=== PATIENT | female | born 1945 | race Caucasian/White ===

== ENCOUNTER 2022-06-17 08:43 | Inpatient (IN) | payer MEDICARE ==
--- NOTE | 2022-06-17 09:35 | ED ---
Abdominal Pain HPI - General Chief Complaint: Abdominal Pain Stated Complaint: Fluid on Abdomen Time Seen by Provider: 06/17/22 08:57 Source: patient, RN notes reviewed Mode of arrival: ambulatory Limitations: no limitations - History of Present Illness Initial Comments: 69-year-old female presents emergency Department chief complaint of abdominal pain, distention, ascites. Patient states she's had a large spleen for one year has been followed by her PCP who repeat ultrasound showing masses concerning for neoplasm metastatic cancer. Patient states she's been struggling with anemia for over one year. Patient states that she yesterday is to assess her fluid for ascites and was referred here. patient states she's had increase abdominal pain, distention. patient denies any fevers chills no dysuria she does complain of mild diarrhea but she has ibs. no melanotic stools. - Related Data Home Medications Medication Instructions Recorded Confirmed Loperamide HCl [Imodium A-D] 2 - 4 mg PO QID PRN 06/17/22 06/17/22 Naproxen Sodium [Aleve] 440 mg PO BID PRN 06/17/22 06/17/22 Allergies Allergy/AdvReac Type Severity Reaction Status Date / Time No Known Allergies Allergy Verified 06/17/22 11:01 Review of Systems ROS Statement: Those systems with pertinent positive or pertinent negative responses have been documented in the HPI. ROS Other: All systems not noted in ROS Statement are negative. Past Medical History Past Medical History: No Reported History History of Any Multi-Drug Resistant Organisms: None Reported Past Surgical History: Cholecystectomy Past Psychological History: No Psychological Hx Reported Smoking Status: Never smoker Past Alcohol Use History: None Reported Past Drug Use History: None Reported General Exam Limitations: no limitations General appearance: alert, in no apparent distress Head exam: Present: atraumatic, normocephalic, normal inspection Eye exam: Present: normal appearance, PERRL, EOMI. Absent: scleral icterus, conjunctival injection, periorbital swelling ENT exam: Present: normal exam, normal oropharynx, mucous membranes moist Neck exam: Present: normal inspection, full ROM. Absent: tenderness, me ningismus, lymphadenopathy Respiratory exam: Present: normal lung sounds bilaterally. Absent: respiratory distress, wheezes, rales, rhonchi, stridor Cardiovascular Exam: Present: regular rate, normal rhythm, normal heart sounds. Absent: systolic murmur, diastolic murmur, rubs, gallop, clicks GI/Abdominal exam: Present: soft, distended, tenderness, normal bowel sounds. Absent: guarding, rebound, rigid Course Vital Signs 06/17/22 06/17/22 08:50 12:16 Temperature 97.7 F Pulse Rate 90 90 Respiratory 18 18 Rate Blood Pressure 132/65 122/56 O2 Sat by Pulse 98 98 Oximetry Medical Decision Making - Medical Decision Making 77-year-old female presented for abdominal pain and ascites. Patient's found to have metastatic cancer this patient and patient has severe ascites. Patient be admitted to medicine consult to interventional radiology, oncology. - Lab Data Result diagrams: 06/17/22 10:28 06/17/22 10:28 Lab Results 06/17/22 06/17/22 06/17/22 Range/Units 10:28 10:28 10:28 WBC 3.7 L (3.8-10.6) k/uL RBC 3.05 L (3.80-5.40) m/uL Hgb 9.5 L (11.4-16.0) gm/dL Hct 30.4 L (34.0-46.0) % MCV 99.8 (80.0-100.0) fL MCH 31.0 (25.0-35.0) pg MCHC 31.1 (31.0-37.0) g/dL RDW 18.4 H (11.5-15.5) % Plt Count 70 L (150-450) k/uL MPV 11.0 Neutrophils % 74 % Lymphocytes % 18 % Monocytes % 4 % Eosinophils % 3 % Basophils % 0 % Neutrophils # 2.7 (1.3-7.7) k/uL Lymphocytes # 0.7 L (1.0-4.8) k/uL Monocytes # 0.1 (0-1.0) k/uL Eosinophils # 0.1 (0-0.7) k/uL Basophils # 0.0 (0-0.2) k/uL Manual Slide Review Performed Hypochromasia Marked Poikilocytosis Slight Anisocytosis Slight Macrocytosis Slight Ovalocytes Present PT (9.0-12.0) sec INR (<1.2) APTT (22.0-30.0) sec Sodium 137 (137-145) mmol/L Potassium 4.0 (3.5-5.1) mmol/L Chloride 105 (98-107) mmol/L Carbon Dioxide 23 (22-30) mmol/L Anion Gap 9 mmol/L BUN 20 H (7-17) mg/dL Creatinine 0.63 (0.52-1.04) mg/dL Est GFR (CKD-EPI)AfAm >90 (>60 ml/min/1.73 sqM) Est GFR (CKD-EPI)NonAf 86 (>60 ml/min/1.73 sqM) Glucose 93 (74-99) mg/dL Plasma Lactic Acid [place] 0.6 L (0.7-2.0) mmol/L Calcium 7.8 L (8.4-10.2) mg/dL Total Bilirubin 1.1 (0.2-1.3) mg/dL AST 17 (14-36) U/L ALT 8 (4-34) U/L Alkaline Phosphatase 66 (38-126) U/L Total Protein 5.4 L (6.3-8.2) g/dL Albumin 2.9 L (3.5-5.0) g/dL Amylase <30 L (30-110) U/L Lipase 18 L (23-300) U/L 06/17/22 Range/Units 10:28 WBC (3.8-10.6) k/uL RBC (3.80-5.40) m/uL Hgb (11.4-16.0) gm/dL Hct (34.0-46.0) % MCV (80.0-100.0) fL MCH (25.0-35.0) pg MCHC (31.0-37.0) g/dL RDW (11.5-15.5) % Plt Count (150-450) k/uL MPV Neutrophils % % Lymphocytes % % Monocytes % % Eosinophils % % Basophils % % Neutrophils # (1.3-7.7) k/uL Lymphocytes # (1.0-4.8) k/uL Monocytes # (0-1.0) k/uL Eosinophils # (0-0.7) k/uL Basophils # (0-0.2) k/uL Manual Slide Review Hypochromasia Poikilocytosis Anisocytosis Macrocytosis Ovalocytes PT 11.9 (9.0-12.0) sec INR 1.1 (<1.2) APTT 29.0 (22.0-30.0) sec Sodium (137-145) mmol/L Potassium (3.5-5.1) mmol/L Chloride (98-107) mmol/L Carbon Dioxide (22-30) mmol/L Anion Gap mmol/L BUN (7-17) mg/dL Creatinine (0.52-1.04) mg/dL Est GFR (CKD-EPI)AfAm (>60 ml/min/1.73 sqM) Est GFR (CKD-EPI)NonAf (>60 ml/min/1.73 sqM) Glucose (74-99) mg/dL Plasma Lactic Acid [place] (0.7-2.0) mmol/L Calcium (8.4-10.2) mg/dL Total Bilirubin (0.2-1.3) mg/dL AST (14-36) U/L ALT (4-34) U/L Alkaline Phosphatase (38-126) U/L Total Protein (6.3-8.2) g/dL Albumin (3.5-5.0) g/dL Amylase (30-110) U/L Lipase (23-300) U/L Disposition Clinical Impression: Metastatic cancer, Ascites Disposition: ADMITTED IP TO THIS HOSP Condition: Fair Referrals: Mary Cole MD [Primary Care Provider] - 1-2 days Time of Disposition: 12:45
[2022-06-17 10:37] LABS: Anisocytosis Slight; Basophils % (A) 0 %; Eosinophils # (A) 0.1 k/uL (0-0.7); Eosinophils % (A) 3 %; HCT 30.4 % (34.0-46.0); HGB 9.5 gm/dL (11.4-16.0); Hypochromasia Marked; Lymphocytes # (A) 0.7 k/uL (1.0-4.8); Lymphocytes % (A) 18 %; MCHC 31.1 g/dL (31.0-37.0); MCV 99.8 fL (80.0-100.0); Macrocytosis Slight; Monocytes # (A) 0.1 k/uL (0-1.0); Monocytes % (A) 4 %; Neutrophils # (A) 2.7 k/uL (1.3-7.7); Neutrophils % (A) 74 %; Poikilocytosis Slight; RBC 3.05 m/uL (3.80-5.40); RDW 18.4 % (11.5-15.5); WBC 3.7 k/uL (3.8-10.6)
[2022-06-17 10:45] LABS: INR 1.1 (<1.2); Prothrombin Time 11.9 sec (9.0-12.0)
[2022-06-17 10:48] LABS: ALT 8 U/L (4-34); AST 17 U/L (14-36); African American GFR (CKD) >90 (>60 ml/min/1.73 sqM); Albumin 2.9 g/dL (3.5-5.0); Alkaline Phosphatase 66 U/L (38-126); Amylase <30 U/L (30-110); Anion Gap 9 mmol/L; Blood Urea Nitrogen 20 mg/dL (7-17); Calcium 7.8 mg/dL (8.4-10.2); Carbon Dioxide 23 mmol/L (22-30); Chloride 105 mmol/L (98-107); Glucose 93 mg/dL (74-99); Lipase 18 U/L (23-300); Non-African American GFR(CKD) 86 (>60 ml/min/1.73 sqM); Sodium 137 mmol/L (137-145); Total Bilirubin 1.1 mg/dL (0.2-1.3); Total Protein 5.4 g/dL (6.3-8.2)
[2022-06-17 10:58] LABS: Platelet Count 70 k/uL (150-450)
[2022-06-17 10:59] LABS: Ovalocytes Present
--- NOTE | 2022-06-17 12:38 | CT ---
EXAMINATION TYPE: CT abdomen pelvis w con CT DLP: 913.5 mGycm, Automated exposure control for dose reduction was used. DATE OF EXAM: 06/17/2022 12:16 PM COMPARISON: None available. CLINICAL INDICATION:Female, 77 years old with history of abdominal pain/US showing masses TECHNIQUE: Standard CT of the abdomen and pelvis following the administration of 100 cc of Isovue 3 00 IV contrast material. Coronal and sagittal reformats were performed. FINDINGS: LOWER CHEST: Partial visualization of bilateral breast prosthesis. Small left pleural effusion with a ssociated atelectasis. Small pericardial effusion. ABDOMEN LIVER: Diffusely hypoattenuating parenchyma. No suspicious focal lesion. GALLBLADDER AND BILE DUCTS: The gallbladder is surgically absent. No biliary duct dilatation. PANCREAS: Unremarkable. SPLEEN: Enlarged measuring 19.6 cm increasing in cc dimension. Multiple hypodense lesions demonstrate d throughout the spleen with largest measuring up to 8.1 cm. ADRENAL GLANDS: Unremarkable. KIDNEYS AND URETERS: No evidence of hydronephrosis or renal calculus. The kidneys enhance symmetrical ly without focal lesion. PELVIS BLADDER: Incompletely distended but grossly unremarkable. REPRODUCTIVE: Abnormal midline posterior pelvis soft tissue involving the uterus and adnexa with cyst ic lesions (series 201, image 71). This grossly measures 8.3 x 7.3 cm with largest cyst on the left m easuring 5.3 centers largest cyst in the right measuring 4.3 cm. There is a hyperdense lesion within the anterior wall uterine fundus measuring up to 3.0 cm. It is difficult to determine origin of mass from the uterus versus ovaries. ABDOMEN & PELVIS STOMACH AND BOWEL: Small hiatal hernia, duodenum is unremarkable. No focal wall thickening. No eviden ce of bowel obstruction. PERITONEUM: No evidence of pneumoperitoneum. Moderate to large ascites. Omental soft tissue nodularit y demonstrated in the ventral omentum (series 201, image 47 and 44). VASCULATURE: Mild atherosclerotic calcifications are present throughout the abdominal aorta and its b ranches. No evidence of aortic aneurysm. Dilated patent splenic vein and main portal vein. MUSCULOSKELETAL: No acute osseous abnormalities. No aggressive osseous lesions. LYMPH NODES: No gross evidence for lymphadenopathy. SOFT TISSUE/ABDOMINAL WALL: Diffuse anasarca. IMPRESSION: 1. Abnormal soft tissue mass in the midline pelvis with cystic lesions involving the adnexa and uter us. Additionally there is an enlarged spleen with multiple lesions identified and peritoneal carcinom atosis. Findings concerning for primary ovarian/uterine malignancy with metastasis. Further evaluatio n with pelvic ultrasound is recommended if not were performed. Gynecological oncologist consult recom mended. 2. Small left pleural effusion, pericardial effusion, and moderate to large ascites likely related #1 .
[2022-06-17] MEDS ORDERED: HYDROcodone/APAP 5-325MG 1 EACH TAB PO PRN (13:17)
[2022-06-17] MEDS ORDERED: ONDANSETRON 4 MG/2 ML VIAL IVP PRN (13:17)
[2022-06-17] MEDS ORDERED: NALOXONE 0.4 MG/ML 1 ML VIAL IV PRN (13:17)
[2022-06-17] MEDS: SODIUM CHLORIDE 0.9% 1,000 ML IV SCH (13:50)
[2022-06-17 17:25] LABS: Appearance,Urine Clear (Clear); Bilirubin,Urine Negative (Negative); Blood,Urine Negative (Negative); Color,Urine Yellow; Glucose,Urine (UA) Negative (Negative); Ketones,Urine 2+ (Negative); Leukocyte Esterase,Urine Trace (Negative); Mucus,Urine Rare /hpf; Nitrite,Urine Negative (Negative); PH, Urine 5.5 (5.0-8.0); Protein,Urine Negative (Negative); RBC,Urine 1 /hpf (0-5); Squamous Epithelial Cell,Urine 1 /hpf (0-4); Urobilinogen,Urine <2.0 mg/dL (<2.0); WBC,Urine 1 /hpf (0-5)
[2022-06-17 17:27] LABS: Specific Gravity,Urine >1.050 (1.001-1.035)
[2022-06-18] MEDS: SODIUM CHLORIDE 0.9% 1,000 ML IV SCH (03:02)
--- NOTE | 2022-06-18 04:45 | HP ---
HISTORY AND PHYSICAL CHIEF COMPLAINT: Abdominal pain and distention. HISTORY OF PRESENT ILLNESS: This is a 77-year-old woman with a past medical history of no significant medical issues, complaining of progressive abdominal distention and pain. The patient apparently lost some weight also. The patient has a history of cholecystectomy. CT scan of the abdomen done in the ER showed multiple abnormalities including soft tissue mass in the midline pelvis with cystic lesions and also small left pleural effusion and splenomegaly and some ascites also. The patient admitted for evaluation. There is no history of any fever, rigors, or chills. PAST MEDICAL HISTORY: No history of any cardiovascular illness. PAST SURGICAL HISTORY: History of cholecystectomy. HOME MEDICATIONS: Reviewed include Aleve. ALLERGIES: None. FAMILY HISTORY: No history of heart disease or strokes in the family. SOCIAL HISTORY: No history of smoking or alcohol. REVIEW OF SYSTEMS: A 14-point review of systems is negative except as mentioned earlier. PHYSICAL EXAMINATION: VITAL SIGNS: Pulse is 88, blood pressure 120/62, respirations 16. HEENT: Conjunctivae normal. NECK: No JVD. CARDIOVASCULAR: S1, S2 muffled. RESPIRATIONS: Decreased breath sounds at the bases. Scattered rhonchi. ABDOMEN: Soft, obese, ascites, splenomegaly. LEGS: No edema. NERVOUS SYSTEM: No focal deficits. LABS: WBC 3.2. Other labs are noted. ASSESSMENT: 1. Abdominal distention with ascites, rule out cirrhosis of liver or metastatic malignancy. 2. 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 3. Mild pancytopenia. RECOMMENDATIONS AND DISCUSSION: This is a 77-year-old woman who presented with multiple complex medical issues. We will monitor the patient closely. We will arrange for Hematology/Oncology evaluation and abdominal paracentesis and symptomatic treatment. Prognosis guarded because of multiple complex medical issues. Further recommendations to follow. See orders for further details. MMODL / IJN: [id number] /
[2022-06-18 11:04] LABS: Anisocytosis Slight; Basophils % (A) 1 %; Eosinophils # (A) 0.1 k/uL (0-0.7); Eosinophils % (A) 5 %; HCT 28.2 % (34.0-46.0); HGB 8.6 gm/dL (11.4-16.0); Hypochromasia Marked; Lymphocytes # (A) 0.8 k/uL (1.0-4.8); Lymphocytes % (A) 28 %; MCHC 30.4 g/dL (31.0-37.0); MCV 101.9 fL (80.0-100.0); Macrocytosis Moderate; Mean Platelet Volume 10.5; Monocytes # (A) 0.1 k/uL (0-1.0); Monocytes % (A) 4 %; Neutrophils # (A) 1.7 k/uL (1.3-7.7); Neutrophils % (A) 61 %; RBC 2.77 m/uL (3.80-5.40); RDW 18.6 % (11.5-15.5); WBC 2.8 k/uL (3.8-10.6)
[2022-06-18 11:11] LABS: Platelet Count 60 k/uL (150-450)
[2022-06-18 12:03] VITALS: RESP 16
[2022-06-18 13:05] LABS: Uric Acid 5.3 mg/dL (3.7-7.4)
--- NOTE | 2022-06-18 13:43 | US ---
Ultrasound-guided paracentesis. DATE OF EXAM: 06/18/2022 CLINICAL HISTORY: Ascites The procedure was discussed with the patient. The risks, complications, benefits, and alternatives we re discussed and any questions were answered. Informed consent was obtained. The patient was placed s upine on the ultrasound table and prepped and draped in the usual sterile fashion. All elements of maximal barrier technique were utilized. Under ultrasound guidance, access into the right lower quadrant was obtained, via the paracentesis catheter system and direct ultrasound guidanc e. Approximately 4.2 liters of straw-colored fluid was removed. The patient was stable throughout the pr ocedure and remained stable upon discharge from Department of Radiology. IMPRESSION: Successful paracentesis under ultrasound guidance.
--- NOTE | 2022-06-18 16:40 | P.PN ---
Subjective Progress Note Date: 06/18/22 This is a pleasant 77 year old male admitted with concern for possible metastatic malignancy. Oncology has been consulted for work up. Patient is pending paracentesis with cytology today. She reports being unable to sit up as she has significant abdominal distention. Labs today showing white count 2.8, hgb 8.6, platelets are 60. Hemodynamically stable. She recently had echocardiogram done in May at [facility], reports requested. States she had routine pap last year at her PCP office which was negative. Further recommendations to come following oncology work up. Review of Systems Constitutional: Denied any fatigue denied any fever. Cardio vascular: denied any chest pain, palpitations Gastrointestinal: denied any nausea, vomiting, diarrhea, reports abdominal pain and distention Pulmonary: Denies cough, reports shortness of breath Neurologic denied any new focal deficits All inpatient medications were reviewed and appropriate changes in these medications as dictated in the interval history and assessment and plan. PHYSICAL EXAMINATION: GENERAL: The patient is alert and oriented x3, not in any acute distress. Well developed, well nourished. HEENT: Pupils are round and equally reacting to light. EOMI. No scleral icterus. No conjunctival pallor. Normocephalic, atraumatic. No pharyngeal erythema. No thyromegaly. CARDIOVASCULAR: S1 and S2 present. No murmurs, rubs, or gallops. PULMONARY: Chest is clear to auscultation, no wheezing or crackles. ABDOMEN: Soft, nontender, distended, normoactive bowel sounds. No palpable organomegaly. MUSCULOSKELETAL: No joint swelling or deformity. EXTREMITIES: No cyanosis, clubbing, or pedal edema. NEUROLOGICAL: Gross neurological examination did not reveal any focal deficits. SKIN: No rashes. Assessment and plan Assessment Abdominal distention with ascites ongoing work up Uterine/Ovarian mass Mild pancytopenia Small left pleural effusion, pericardial effusion most likely from abdominal ascites Post Cholecystectomy Splenomegaly Bilateral breast prosthesis GI Prophylaxis DVT Prophylaxis No Code Plan Pending paracentesis Oncology work up Repeat CBC in AM Echo report reqeuested from [place] Follow up AM chest xray The impression and plan of care has been dictated by Polly Rdz Nurse Practitioner as directed. Dr. Michelle MD I have performed a history and physical examination and medical decision making of this patient, discussed the same with the dictator, and agree with the dictators assessment and plan as written, documented as a scribe. Based on total visit time, I have performed more than 50% of this visit. Objective - Vital Signs Vital signs: Vital Signs Temp 97.7 F 06/18/22 04:58 Pulse 81 06/18/22 12:50 Resp 16 06/18/22 12:50 BP 119/63 06/18/22 12:50 Pulse Ox 96 06/18/22 12:50 FiO2 Intake & Output 06/17/22 06/18/22 06/18/22 18:59 06:59 18:59 Intake Total 880 1020 Balance 880 1020 Weight 68.18 kg Intake: Intake, IV Titration 300 900 Amount Sodium Chloride 0.9% 1, 300 900 000 ml @ 75 mls/hr IV . [id number] MEDARDO Rx#:[id number] Oral 580 120 Other: # Voids 1 1 - Labs CBC & Chem 7: 06/18/22 10:26 06/17/22 10:28 Labs: Abnormal Lab Results - Last 24 Hours (Table) 06/17/22 06/18/22 Range/Units 09:27 10:26 WBC 2.8 L (3.8-10.6) k/uL RBC 2.77 L (3.80-5.40) m/uL Hgb 8.6 L (11.4-16.0) gm/dL Hct 28.2 L (34.0-46.0) % MCV 101.9 H (80.0-100.0) fL MCHC 30.4 L (31.0-37.0) g/dL RDW 18.6 H (11.5-15.5) % Plt Count 60 L (150-450) k/uL Lymphocytes # 0.8 L (1.0-4.8) k/uL Ur Specific [place] >1.050 H (1.001-1.035) Urine Ketones 2+ H (Negative) Ur Leukocyte Esterase Trace H (Negative) Urine Mucus Rare H (None) /hpf Assessment and Plan Time with Patient: Less than 30
--- NOTE | 2022-06-18 18:39 | P.CONS ---
History of Present Illness - Reason for Consult Consult date: 06/18/22 malignancy concern Requesting physician: Rene Cortez - History of Present Illness Mrs Carr is a 69-year-old female presents emergency Department chief complaint of abdominal pain, distention, ascites. We recently received a stat referral from her PCP for pancytopenia on 06/16/22, but she has not been seen in office yet. Apparently anemia and identified large spleen was mentioned a year has been followed by her PCP who repeat ultrasound showing masses concerning for neoplasm metastatic cancer. She did see Dr. Cortez in [place], oncology but at that time refused bone marrow biopsy Patient states that she yesterday is to assess her fluid for ascites and was referred here. patient states she's had increase abdominal pain, distention. CBC shows pancytopenia with macrocytosis. CT abdomen and pelvis reveal cystic pelvic mass - adnexa associated and ascites. Paracentesis for diagnostic and therapeutic implications was already ordered. Review of Systems All systems: negative Constitutional: Reports as per HPI Past Medical History Past Medical History: No Reported History History of Any Multi-Drug Resistant Organisms: None Reported Past Surgical History: Cholecystectomy Additional Past Surgical History / Comment(s): bunionecty to left foot Past Anesthesia/Blood Transfusion Reactions: No Reported Reaction Smoking Status: Never smoker Medications and Allergies Home Medications Medication Instructions Recorded Confirmed Type Loperamide HCl [Imodium A-D] 2 - 4 mg PO QID PRN 06/17/22 06/17/22 History Naproxen Sodium [Aleve] 440 mg PO BID PRN 06/17/22 06/17/22 History Allergies Allergy/AdvReac Type Severity Reaction Status Date / Time No Known Allergies Allergy Verified 06/17/22 11:01 Physical Exam Vitals: Vital Signs Temp Pulse Pulse Resp BP BP Pulse Ox 06/18/22 12:00 82 16 131/73 97 06/18/22 08:25 77 13 06/18/22 04:58 97.7 F 77 13 110/66 93 L 06/17/22 19:10 98.2 F 87 18 107/59 97 06/17/22 15:36 20 06/17/22 14:00 97.6 F 88 16 120/66 96 06/17/22 13:57 87 18 124/61 96 Intake and Output 06/17/22 06/18/22 06/18/22 22:59 06:59 14:59 Intake Total 880 1020 Balance 880 1020 Intake: Intake, IV Titration 300 900 Amount Sodium Chloride 0.9% 1, 300 900 000 ml @ 75 mls/hr IV . [id number] MEDARDO Rx#:[id number] Oral 580 120 Other: # Voids 1 1 - Constitutional General appearance: cooperative - EENT Eyes: EOMI ENT: NA/AT - Neck Neck: normal ROM - Respiratory Respiratory: bilateral: diminished - Cardiovascular Rhythm: regularly irregular - Gastrointestinal General gastrointestinal: distended - Integumentary Integumentary: pale - Musculoskeletal Musculoskeletal: generalized weakness - Psychiatric Psychiatric: A&O x's 3, appropriate affect Results CBC & Chem 7: 06/18/22 10:26 06/17/22 10:28 Labs: Abnormal Lab Results - Last 24 Hours (Table) 06/17/22 06/18/22 Range/Units 09:27 10:26 WBC 2.8 L (3.8-10.6) k/uL RBC 2.77 L (3.80-5.40) m/uL Hgb 8.6 L (11.4-16.0) gm/dL Hct 28.2 L (34.0-46.0) % MCV 101.9 H (80.0-100.0) fL MCHC 30.4 L (31.0-37.0) g/dL RDW 18.6 H (11.5-15.5) % Plt Count 60 L (150-450) k/uL Lymphocytes # 0.8 L (1.0-4.8) k/uL Ur Specific [place] >1.050 H (1.001-1.035) Urine Ketones 2+ H (Negative) Ur Leukocyte Esterase Trace H (Negative) Urine Mucus Rare H (None) /hpf CT scan - abdomen: report reviewed CT scan - pelvis: report reviewed Assessment and Plan (1) Macrocytic anemia Narrative/Plan: Work-up ordered Current Visit: Yes Status: Acute Code(s): D53.9 - NUTRITIONAL ANEMIA, UN SPECIFIED SNOMED Code(s): 74504127 (2) Pancytopenia Narrative/Plan: Pancytopenia work-up ordered Transfuse hg<7, platelets <10 Hold NSAIDS, ASA, AC platlets <50K Current Visit: Yes Status: Acute Code(s): D61.818 - OTHER PANCYTOPENIA SN OMED Code(s): 462008906 (3) Pelvic mass Narrative/Plan: Await therapeutic and diagnostic paracentesis for cytology and definitive diagnosis There are 3-4 mentioned cystic structured posterior pelvic masses largest 8x7cm Current Visit: Yes Status: Acute Code(s): R19.00 - INTRA-ABD AND PELVIC SWELLING, MASS AND LUMP, UNSP SITE SNOMED Code(s): 94557830 (4) Ascites Narrative/Plan: Status post paracentesis cytolology pending Current Visit: Yes Status: Acute Code(s): R18.8 - OTHER ASCITES SNOMED Code(s): 743965294 (5) Splenomegaly Narrative/Plan: in conjunction with pancytopenia will discuss follow-up Bone Marrow Biopsy as outptient Current Visit: Yes Status: Acute Code(s): R16.1 - SPLENOMEGALY, NOT ELSEWHERE CLASSIFIED SNOMED Code(s): 79293341 Plan: Dr. Garg: I have completed the full history and physical and developed the above impression and plan, agree with dictation, dictated as a ascribe.
[2022-06-18 20:00] LABS: Protein, Total 5.3 g/dL (6.2-8.2)
[2022-06-18 20:35] LABS: % Iron Saturation 27.76 (12.00-45.00)
[2022-06-18 21:43] LABS: Immunoglobulin A <50.0 mg/dL (60.0-350.0)
[2022-06-18 23:45] LABS: LDH, Body Fluid Source Ascites
[2022-06-19 01:46] LABS: Appearance,BF Slightly Hazy
[2022-06-19 05:59] VITALS: TEMP 97.4
--- NOTE | 2022-06-19 07:50 | XR ---
EXAMINATION TYPE: XR chest 2V DATE OF EXAM: 06/19/2022 7:37 AM COMPARISON: CT abdomen pelvis 06/17/2022. TECHNIQUE: XR chest 2V Frontal and lateral views of the chest. CLINICAL INDICATION:Female, 77 years old with history of pleural effusion; FINDINGS: Lungs/Pleura: Small left pleural effusion. No focal consolidation or pneumothorax. Pulmonary vascularity: Unremarkable. Heart/mediastinum: Cardiomediastinal silhouette is unremarkable. Atherosclerotic calcifications are seen in the aorta. Musculoskeletal: No acute osseous pathology. Other findings: Left breast calcified prosthesis. IMPRESSION: Small left pleural effusion. No focal consolidation.
[2022-06-19 08:37] VITALS: BP 118/69; PULSE 77
[2022-06-19] MEDS ORDERED: FAMOTIDINE 20 MG TAB PO SCH (09:00)
[2022-06-19 11:47] LABS: Anisocytosis Slight; Basophils % (A) 0 %; Eosinophils # (A) 0.1 k/uL (0-0.7); Eosinophils % (A) 4 %; Hypochromasia Marked; Lymphocytes % (A) 29 %; MCH 31.5 pg (25.0-35.0); MCV 101.7 fL (80.0-100.0); Macrocytosis Moderate; Monocytes # (A) 0.1 k/uL (0-1.0); Monocytes % (A) 3 %; Neutrophils % (A) 62 %; RBC 2.85 m/uL (3.80-5.40); RDW 18.6 % (11.5-15.5); WBC 3.3 k/uL (3.8-10.6)
[2022-06-19 11:48] LABS: Platelet Count 67 k/uL (150-450)
--- NOTE | 2022-06-20 22:21 | P.DS ---
Providers Date of admission: 06/17/22 12:50 Attending physician: Sukumar Middleton MD Consults: 06/17/22 13:17 Consult Physician Urgent Consulting Provider: Abel Lozoya Consult Reason/Comments: Metastatic cancer Do you want consulting provider notified?: Yes Primary care physician: Mary Cole MD Hospital Course: Diagnosis Abdominal distention with ascites post paracentesis with 4.2 L off Uterine/Ovarian mass Mild pancytopenia Small left pleural effusion, pericardial effusion most likely from abdominal ascites Post Cholecystectomy Splenomegaly known history for the last year Bilateral breast prosthesis History of Irritable bowel syndrome No Code Discharge Disposition Patient is discharge in stable condition in guarded prognosis. She has ongoing work up for abominal mass suspicion high for primary uterine/ovarian mass with possible metastasis. She is post paracentesis. She will follow up with primary care Dr Cole and also with Gianni Lutz with oncology. She had an extensive lab work up complete in patient and also analysis of abdominal ascites fluid from paracentesis, cytology currently pending. Patient is also given 10 days of oral lasix tablets for her lower extremity peripheral edema. Repeat CBC/BMP in 2 to 3 days. Hospital Course This is a pleasant 77 year old female patient of Dr Cole who presents to the hospital with concern for increasing abdominal distention and abdominal pain. She was told one year ago she had enlarged spleen and she had repeat ultrasound done outpatient showing masses with concern for neoplasm and metastatic cancer. She has also been struggling with anemia over the last year. She was sent in for evaluation for abdominal ascites. Reports mild diarrhea consistent with known history of IBS, denies fever, chills. She denies dysuria, no chest pain. She does complain of mild shortness of breath mostly due to abdominal distention. She recently had echocardiogram done in May at [facility], reports requested. States she had routine pap last year at her PCP office which was negative. She was admitted to the hospital with consult placed to oncology and interventional radiology. She had abdominal pelvis CT completed which shows cystic pelvic mass - adnexa associated and ascites. There is also pericardial effusion. She underwent paracentesis with 4.2 L of straw colored fluid. Cytology is pending on this. CA 125 atigen at 785.0. Labs on admission showing pancytopenia with white count 3.7, hgb 9.5, platelet count is 70. 06/19/2022 Patient is post paracentesis and also evaluation by oncology. She will finish her work up outpatient. Today she reports improvement in abdominal distention and discomfort she is breathing easier and sitting up in bed comfortably. She has been ambulating to the restroom. Denies shortness of breath, no chest pain. Her lungs are clear, S1 S2 auscultated. She has mild abominal distention with normoactive bowel sounds. She does have some peripheral edema to the lower extremities and discussed this. She will follow up with her primary care to discuss echocardiogram report. Report was unable to be retrieved from [facility], possibly due to it being a holiday weekend. She is sent in 10 days of oral lasix at 20 mg po daily, and also instructed to repeat labs in 2 to 3 days outpatient to monitor blood count levels and also metabolic panel. Today her white count is 3.3, RBC 2.85, hgb 9.0 she is mircocytic and also platelet count is 67. Iron studies have been completed as well. Transferrin level is 86.7, iron 34 and TIBC 121. B12 and Folate within normal limits. She had chest xray this morning showing small left pleural effusion with no consolidation or pneumothorax. There are atherosclerotic calcifications in the aorta. Left breast calcified prosthesis. Please see medication reconciliation for a list of current medication. Thank you for allowing us to participate in the care of this patient. The impression and plan of care has been dictated by Polly Rdz, Nurse Practitioner as directed. Dr. Michelle MD I have performed a history and physical examination and medical decision making of this patient, discussed the same with the dictator, and agree with the dictators assessment and plan as written, documented as a scribe. Based on total visit time, I have performed more than 50% of this visit. Patient Condition at Discharge: Fair Plan - Discharge Summary Discharge Rx Participant: No New Discharge Prescriptions: New Famotidine [Pepcid] 20 mg PO DAILY #30 tab Furosemide [Lasix] 20 mg PO DAILY #10 tab Continue Loperamide HCl [Imodium A-D] 2 - 4 mg PO QID PRN PRN Reason: Diarrhea Discontinued Naproxen Sodium [Aleve] 440 mg PO BID PRN PRN Reason: Pain Discharge Medication List Loperamide HCl [Imodium A-D] 2 - 4 mg PO QID PRN 06/17/22 [History] Famotidine [Pepcid] 20 mg PO DAILY #30 tab 06/19/22 [Rx] Furosemide [Lasix] 20 mg PO DAILY #10 tab 06/19/22 [Rx] Follow up Appointment(s)/Referral(s): Abel Lozoya MD [STAFF PHYSICIAN] - 1 Week Mary Cole MD [Primary Care Provider] - 1-2 days Ambulatory/Diagnostic Orders: Basic Metabolic Panel [LAB.AMB] Time Frame: 3 Days, Location: None Selected Complete Blood Count w/diff [LAB.AMB] Time Frame: 3 Days, Location: None Selected Patient Instructions/Handouts: Famotidine (By mouth), Ascites (DC) Activity/Diet/Wound Care/Special Instructions: Follow up with primary care post discharge in 1-2 days. Follow up regarding electrocardiogram done at [facility]. Unable to obtain reports for review. Follow up with oncology Dr Gianni Young on discharge . Call on Tuesday to schedule an appointment for next week Patient will need to follow with gynecology/radiological health specialist outpatient Tylenol for pain management Avoid the use of NSAIDS, aspirin containing products diet as tolerated Activity Limited until seen by Dr. Rolon Disposition: HOME SELF-CARE
[2022-06-22 11:39] LABS: Free Kappa Lt Chain Qnt, Serum 4.01 mg/dL (0.33-1.94)
[2022-06-22 16:07] LABS: Albumin 3.06 g/dL (3.80-4.90); Gamma Globulin 1.23 g/dL (0.70-1.50)
[2022-06-23 13:33] LABS: Methylmalonic Acid 0.21 umol/L (<0.40)
--- NOTE | 2022-06-25 10:53 | CDI ---
Documentation Clarification Form Date: 06/25/22 From: Ashleigh Coffman Admit Date: 06/17/2022 12:50:00 PM Patient Name: Lesly Carr Visit Number: [id number] Discharge Date: 06/19/2022 02:55:00 PM ATTENTION: The Clinical Documentation Specialists (CDI) and [facility] Coding Staff appreciate your assistance in clarifying documentation. Please respond to the clarification below the line at the bottom and electronically sign. The CDI & [facility] Coding staff will review the response and follow-up if needed. Please note: Queries are made part of the Legal Health Record. If you have any questions, please contact the author of this message via ITS. Dr. 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 WT1 positivity makes a uterine/endometrial primary less likely. A primary peritoneal carcinoma can have similar features, and is also considered. Coding guidelines do not allow coding professionals to code based on pathology results; therefore, clarification is requested. History/risk factors: pancytopenia, pericardial effusion, pleural effusion, splenomegaly Clinical Indicators: Paracentesis under ultrasound guidance performed due to ascites. Treatment: [place] Please clarify if you agree with the pathology report diagnosis of Mullerian/ovary or primary peritoneal adenocarcinoma: [ ] Mullerian/ovary adenocarcinoma [ ] Primary peritoneal adenocarcinoma [ ] Other (please specify) [ x ] Unable to determine MTDD
== END 2022-06-19 14:55 | disposition home or self-care (01) | DRG 948 ==
LOC: EC 08:43 → 5NMEDONC 12:50
PROVIDERS: ADMIT Internal Medicine; ATTEND Internal Medicine
PROC: 0W9G3ZX Drainage of Peritoneal Cavity, Percutaneous Approach, Diagnostic (ICD-10-PCS; principal; 2022-06-18)
DX: R18.8 Other ascites (principal); D61.818 Other pancytopenia; I31.3 Pericardial effusion (noninflammatory); J90 Pleural effusion, not elsewhere classified; N83.9 Noninflammatory disorder of ovary, fallopian tube and broad ligament, unspecified; N85.9 Noninflammatory disorder of uterus, unspecified; D53.9 Nutritional anemia, unspecified; D75.89 Other specified diseases of blood and blood-forming organs; R16.1 Splenomegaly, not elsewhere classified; K58.0 Irritable bowel syndrome with diarrhea; Z98.82 Breast implant status
CPT/HCPCS: 36415; 49083; 71046; 74177; 80053; 81001; 82150; 82607; 82728; 82746; 82784; 83540; 83550; 83605; 83615; 83690; 83883; 83921; 84165; 84425; 84550; 85025; 85610; 85730; 86038; 86304; 86334; 86431; 87070; 87075; 87205; 88108; 88305; 88313; 88341; 88342; 89050; 99285

== ENCOUNTER 2022-07-01 11:43 | Day surgery (SDC) | payer MEDICARE ==
[2022-07-01 12:28] LABS: Mean Platelet Volume 9.8
[2022-07-01 12:30] LABS: Platelet Count 79 k/uL (150-450)
[2022-07-01 12:36] VITALS: TEMP 98
[2022-07-01 12:39] LABS: INR 1.1 (<1.2); Prothrombin Time 11.8 sec (9.0-12.0)
[2022-07-01 13:19] VITALS: RESP 18
[2022-07-01 13:59] VITALS: PULSE 78
[2022-07-01 14:29] VITALS: BP 109/67
--- NOTE | 2022-07-01 15:52 | US ---
Ultrasound-guided paracentesis. DATE OF EXAM: 07/01/2022 CLINICAL HISTORY: Ascites The procedure was discussed with the patient. The risks, complications, benefits, and alternatives we re discussed and any questions were answered. Informed consent was obtained. The patient was placed s upine on the ultrasound table and prepped and draped in the usual sterile fashion. All elements of maximal barrier technique were utilized. Under ultrasound guidance, access into the right lower quadrant was obtained, via the paracentesis catheter system and direct ultrasound guidanc e. Approximately 5.3 liters of straw-colored fluid was removed. The patient was stable throughout the pr ocedure and remained stable upon discharge from Department of Radiology. IMPRESSION: Successful paracentesis under ultrasound guidance.
== END 2022-07-01 14:22 | disposition home or self-care (01) ==
LOC: RADPROMAIN 11:43
PROVIDERS: ATTEND Internal Medicine
DX: R18.8 Other ascites (principal)
CPT/HCPCS: 36415; 49083; 85049; 85610

== ENCOUNTER 2022-07-07 11:15 | Day surgery (SDC) | payer MEDICARE ==
[2022-07-05 10:57] VITALS: BMI 22.4
[~2022-07-07 11:15] MED LIST: HYDROmorphone 0.5 MG/0.5 ML SYRINGE IVP PRN; LACTATED RINGERS 1,000 ML IV SCH
[2022-07-07 11:46] VITALS: RESP 16; TEMP 98
[2022-07-07] MEDS ORDERED: PROPOFOL 10 MG/ML 20 ML VIAL IV ONE (12:36)
[2022-07-07 13:37] VITALS: PULSE 70
[2022-07-07 14:09] VITALS: BP 97/60
[2022-07-07 15:43] LABS: Anisocytosis Slight; Basophils % (A) 0 %; Eosinophils # (A) 0.1 k/uL (0-0.7); Eosinophils % (A) 2 %; HGB 10.8 gm/dL (11.4-16.0); Hypochromasia Marked; Lymphocytes % (A) 25 %; MCH 30.6 pg (25.0-35.0); MCHC 30.9 g/dL (31.0-37.0); Macrocytosis Slight; Mean Platelet Volume 10.7; Monocytes # (A) 0.2 k/uL (0-1.0); Monocytes % (A) 5 %; Neutrophils # (A) 2.7 k/uL (1.3-7.7); Neutrophils % (A) 66 %; RBC 3.53 m/uL (3.80-5.40); Reticulocyte % 1.8 % (0.5-2.0); WBC 4.1 k/uL (3.8-10.6)
[2022-07-07 15:46] LABS: Platelet Count 64 k/uL (150-450)
[2022-07-07 15:53] LABS: Anisocytosis (M) Present; Ovalocytes Present; Poikilocytosis (M) Present; RBC Fragments Present
--- NOTE | 2022-07-08 08:34 | OP ---
OPERATIVE REPORT PROCEDURE PERFORMED: Bone marrow biopsy, aspiration of the right iliac crest. PREPROCEDURE DIAGNOSIS: Pancytopenia with macrocytic anemia. POSTPROCEDURE DIAGNOSIS: Pancytopenia with macrocytic anemia. DESCRIPTION OF PROCEDURE: Ms. Carr was placed in the left lateral decubitus position with the anterior superior iliac spine and iliac crest palpated. Appropriate spot in the posterior iliac crest was palpated and was marked with a nonpermanent skin marker. The area was prepped with Betadine and alcohol, following which she was sterilely draped, 1% lidocaine was applied to the area of bone marrow aspiration. A small incision was then made at the site of the marker. 4-inch Jamshidi needle was then advanced to the bone marrow. Two initial attempts of obtaining aspiration were initially unsuccessful. Third attempt obtained 16 mL of bone marrow aspirate with spicules. The needle was then further advanced into the bone marrow to obtain a core sample. This unfortunately was not successful. Pressure bandage was then applied. Ms. Carr tolerated the procedure well with less than 1 mL of blood loss. Aspirate sample obtained will be sent for flow cytometry, cytogenetics as well as next generation mutational sequencing. We will follow up on the studies sent. MMODL / IJN: [id number] /
== END 2022-07-07 14:25 | disposition home or self-care (01) ==
LOC: OR 11:15
PROVIDERS: ATTEND Internal Medicine
DX: C56.9 Malignant neoplasm of unspecified ovary (principal); D53.9 Nutritional anemia, unspecified; K58.9 Irritable bowel syndrome, unspecified
CPT/HCPCS: 85025; 85045; 38222; J2704

== ENCOUNTER 2022-07-15 11:56 | Day surgery (SDC) | payer MEDICARE ==
[2022-07-15 13:27] VITALS: RESP 16; TEMP 98.2
[2022-07-15 14:10] LABS: Mean Platelet Volume 11.1; Platelet Count 69 k/uL (150-450)
[2022-07-15 14:13] LABS: INR 1.1 (<1.2); Prothrombin Time 11.9 sec (9.0-12.0)
[2022-07-15 15:55] VITALS: BP 109/65; PULSE 84
--- NOTE | 2022-07-19 09:48 | US ---
Ultrasound-guided paracentesis. DATE OF EXAM: 07/15/2022 CLINICAL HISTORY: Ascites The procedure was discussed with the patient. The risks, complications, benefits, and alternatives we re discussed and any questions were answered. Informed consent was obtained. The patient was placed s upine on the ultrasound table and prepped and draped in the usual sterile fashion. All elements of maximal barrier technique were utilized. Under ultrasound guidance, access into the right lower quadrant was obtained, via the paracentesis catheter system and direct ultrasound guidanc e. Approximately 4.2 liters of straw-colored fluid was removed. The patient was stable throughout the pr ocedure and remained stable upon discharge from Department of Radiology. IMPRESSION: Successful paracentesis under ultrasound guidance.
== END 2022-07-15 15:35 | disposition home or self-care (01) ==
LOC: RADPROMAIN 11:56
PROVIDERS: ATTEND Internal Medicine
DX: R18.8 Other ascites (principal)
CPT/HCPCS: 36415; 49083; 85049; 85610

== ENCOUNTER 2022-07-29 08:53 | Day surgery (SDC) | payer MEDICARE ==
[2022-07-29 09:30] LABS: Mean Platelet Volume 11.8
[2022-07-29 09:32] LABS: Platelet Count 71 k/uL (150-450)
[2022-07-29 09:38] LABS: INR 1.2 (<1.2); Prothrombin Time 12.5 sec (9.0-12.0)
[2022-07-29 10:19] VITALS: RESP 16; TEMP 97.6
[2022-07-29 11:28] VITALS: BP 110/53; PULSE 72
--- NOTE | 2022-07-29 12:20 | US ---
Ultrasound-guided paracentesis. DATE OF EXAM: 07/29/2022 CLINICAL HISTORY: Ascites The procedure was discussed with the patient. The risks, complications, benefits, and alternatives we re discussed and any questions were answered. Informed consent was obtained. The patient was placed s upine on the ultrasound table and prepped and draped in the usual sterile fashion. All elements of maximal barrier technique were utilized. Under ultrasound guidance, access into the right lower quadrant was obtained, via the paracentesis catheter system and direct ultrasound guidanc e. Approximately 5 liters of straw-colored fluid was removed. The patient was stable throughout the proc edure and remained stable upon discharge from Department of Radiology. IMPRESSION: Successful paracentesis under ultrasound guidance.
== END 2022-07-29 11:25 | disposition home or self-care (01) ==
LOC: RADPROMAIN 08:53
PROVIDERS: ATTEND Internal Medicine
DX: R18.8 Other ascites (principal)
CPT/HCPCS: 36415; 49083; 85049; 85610

== ENCOUNTER 2022-08-09 10:54 | Day surgery (SDC) | payer MEDICARE ==
[2022-08-09 11:34] LABS: Mean Platelet Volume 13.2
[2022-08-09 11:57] LABS: Platelet Count 21 k/uL (150-450)
[2022-08-09 11:58] LABS: INR 1.2 (<1.2); Prothrombin Time 12.3 sec (9.0-12.0)
[2022-08-09 17:18] VITALS: BP 101/65; TEMP 98
[2022-08-09 17:22] VITALS: PULSE 78; RESP 18
--- NOTE | 2022-08-10 08:29 | US ---
EXAMINATION TYPE: US paracentesis abd w/image DATE OF EXAM: 08/09/2022 COMPARISON: NONE HISTORY: Ascites. PROCEDURE: Maximal barrier technique was utilized. The skin overlying a suitable pocket of fluid was localized with ultrasound and the overlying skin was prepped and draped. Ultrasound was utilized with sterile technique. Lidocaine was used for local anesthesia and a skin gerry made with a scalpel. Catheter was advanced under direct ultrasound guidance into a suitable pocket of fluid and approximately 4.1 liter s of ascites fluid were removed. Catheter was withdrawn and hemostasis achieved. There is no immedi ate complication; the patient is discharged in stable condition. IMPRESSION: STATUS POST ULTRASOUND GUIDED PARACENTESIS FOR PALLIATION OF ASCITES. THIS PROCEDURE WA S PERFORMED BY THE UNDERSIGNED.
== END 2022-08-09 16:10 | disposition home or self-care (01) ==
LOC: RADPROMAIN 10:54
PROVIDERS: ATTEND Internal Medicine
DX: R18.8 Other ascites (principal)
CPT/HCPCS: 86900; 86901; 85049; 85610; 86850; 36415; 49083; P9073

== ENCOUNTER 2022-08-19 18:05 | Inpatient (IN) | payer MEDICARE ==
--- NOTE | 2022-08-19 18:49 | ED ---
Neuro HPI - General Chief Complaint: Neuro Symptoms/Deficit Stated Complaint: AMS,Poss Stroke Time Seen by Provider: 08/19/22 18:30 Source: patient Mode of arrival: wheelchair - History of Present Illness Is the patient presenting with stroke symptoms?: Yes Last Known Well Date: 08/19/22 Last Known Well Time: 13:00 -: hour(s) Initial Comments: This patient is 77-year-old woman with history of ovarian cancer who presents with complaint that she is having weakness and trouble walking. Patient was in her usual state of health until approximately 1 PM today. She was having lunch with family. They noticed that she seemed to be confused and seemed to be having difficulty with her speech. They said she was having trouble getting her thoughts across to them. They attempted to get her up from the table and when she was walking she seemed to be dragging her right leg. She did require family to support her while she was walking. They note that both legs were weak but th e right was dragging. The patient rested for a period of time and the speech seemed better, but she remains very weak. Family phoned the patient's oncologist who recommended she be seen in the emergency department. No headache. No change in vision or hearing. Location: speech, right leg History of same: No Place: home Quality: weak Improves With: time Worsens With: none On Anticoagulants: No Context: sudden onset Associated Symptoms: denies other symptoms Treatments Prior to Arrival: none - Related Data Home Medications: Home Medications Medication Instructions Recorded Confirmed Loperamide HCl [Imodium A-D] 2 - 4 mg PO QID PRN 06/17/22 08/19/22 traMADol HCL 50 mg PO TID PRN 07/05/22 08/19/22 Ondansetron [Zofran] 4 mg PO Q6H PRN 08/09/22 08/19/22 OLANZapine [ZyPREXA] 2.5 mg PO HS 08/19/22 08/19/22 Allergies/Adverse Reactions: Allergies Allergy/AdvReac Type Severity Reaction Status Date / Time No Known Allergies Allergy Verified 08/19/22 18:20 Review of Systems ROS Statement: Those systems with pertinent positive or pertinent negative responses have been documented in the HPI. ROS Other: All systems not noted in ROS Statement are negative. Constitutional: Denies: fever Respiratory: Denies: cough, dyspnea Cardiovascular: Denies: chest pain, palpitations, syncope Gastrointestinal: Denies: abdominal pain, vomiting, diarrhea Genitourinary: Denies: dysuria, hematuria Musculoskeletal: Denies: back pain Skin: Denies: rash Neurological: Reports: weakness, confusion, abnormal gait. Denies: headache, numbness General Exam General appearance: alert, in no apparent distress Head exam: Present: atraumatic, normocephalic Eye exam: Present: normal appearance. Absent: scleral icterus, conjunctival injection ENT exam: Present: mucous membranes dry Neck exam: Present: normal inspection, full ROM. Absent: meningismus Respiratory exam: Present: normal lung sounds bilaterally. Absent: respiratory distress, wheezes, rales, rhonchi, stridor Cardiovascular Exam: Present: regular rate, normal rhythm, normal heart sounds. Absent: systolic murmur, diastolic murmur, rubs, gallop GI/Abdominal exam: Present: soft. Absent: distended, tenderness, guarding, rebound, rigid, mass Extremities exam: Present: normal inspection, normal capillary refill. Absent: pedal edema, calf tenderness Back exam: Present: normal inspection. Absent: CVA tenderness (R), CVA tenderness (L) Neurological exam: Present: alert, oriented X3, CN II-XII intact Skin exam: Present: warm, dry, intact, normal color. Absent: rash Stroke MDM - Lab Data Result diagrams: 08/21/22 06:17 08/21/22 06:17 Lab Results 08/19/22 08/19/22 08/19/22 Range/Units 18:48 18:48 18:48 WBC 3.7 L (3.8-10.6) k/uL RBC 2.86 L (3.80-5.40) m/uL Hgb 8.7 L D (11.4-16.0) gm/dL Hct 27.7 L (34.0-46.0) % MCV 96.8 (80.0-100.0) fL MCH 30.5 (25.0-35.0) pg MCHC 31.5 (31.0-37.0) g/dL RDW 18.1 H (11.5-15.5) % Plt Count 45 L (150-450) k/uL MPV 11.6 Neutrophils % (Manual) 66 % Band Neuts % (Manual) 1 % Lymphocytes % (Manual) 30 % Monocytes % (Manual) 3 % Neutrophils # (Manual) 2.40 (1.3-7.7) k/uL Lymphocytes # (Manual) 1.11 (1.0-4.8) k/uL Monocytes # (Manual) 0.11 (0-1.0) k/uL Nucleated RBCs 0 (0-0) /100 WBC Manual Slide Review Performed Hypochromasia Slight Poikilocytosis Slight Anisocytosis Slight Macrocytosis Slight PT 12.4 H (9.0-12.0) sec INR 1.2 H (<1.2) APTT 27.6 (22.0-30.0) sec Sodium 129 L (137-145) mmol/L Potassium 3.7 (3.5-5.1) mmol/L Chloride 101 (98-107) mmol/L Carbon Dioxide 23 (22-30) mmol/L Anion Gap 5 mmol/L BUN 17 (7-17) mg/dL Creatinine 0.60 (0.52-1.04) mg/dL Est GFR (CKD-EPI)AfAm >90 (>60 ml/min/1.73 sqM) Est GFR (CKD-EPI)NonAf 88 (>60 ml/min/1.73 sqM) Glucose 101 H (74-99) mg/dL POC Glucose (mg/dL) (70-110) mg/dL POC Glu Plant Breeder ID Estimated Ave Glu mg/dL Hemoglobin A1c (0.0-6.0) % Calcium 6.9 L (8.4-10.2) mg/dL Total Bilirubin 0.4 (0.2-1.3) mg/dL AST 18 (14-36) U/L ALT 12 (4-34) U/L Alkaline Phosphatase 84 (38-126) U/L Troponin I (0.000-0.034) ng/mL Total Protein 3.7 L (6.3-8.2) g/dL Albumin 1.8 L (3.5-5.0) g/dL 08/19/22 08/19/22 08/19/22 Range/Units 18:48 18:48 18:52 WBC (3.8-10.6) k/uL RBC (3.80-5.40) m/uL Hgb (11.4-16.0) gm/dL Hct (34.0-46.0) % MCV (80.0-100.0) fL MCH (25.0-35.0) pg MCHC (31.0-37.0) g/dL RDW (11.5-15.5) % Plt Count (150-450) k/uL MPV Neutrophils % (Manual) % Band Neuts % (Manual) % Lymphocytes % (Manual) % Monocytes % (Manual) % Neutrophils # (Manual) (1.3-7.7) k/uL Lymphocytes # (Manual) (1.0-4.8) k/uL Monocytes # (Manual) (0-1.0) k/uL Nucleated RBCs (0-0) /100 WBC Manual Slide Review Hypochromasia Poikilocytosis Anisocytosis Macrocytosis PT (9.0-12.0) sec INR (<1.2) APTT (22.0-30.0) sec Sodium (137-145) mmol/L Potassium (3.5-5.1) mmol/L Chloride (98-107) mmol/L Carbon Dioxide (22-30) mmol/L Anion Gap mmol/L BUN (7-17) mg/dL Creatinine (0.52-1.04) mg/dL Est GFR (CKD-EPI)AfAm (>60 ml/min/1.73 sqM) Est GFR (CKD-EPI)NonAf (>60 ml/min/1.73 sqM) Glucose (74-99) mg/dL POC Glucose (mg/dL) 129 H (70-110) mg/dL POC Glu Plant Breeder ID Everardo Wiggins [address] Glu mg/dL 100 Hemoglobin A1c 5.3 (0.0-6.0) % Calcium (8.4-10.2) mg/dL Total Bilirubin (0.2-1.3) mg/dL AST (14-36) U/L ALT (4-34) U/L Alkaline Phosphatase (38-126) U/L Troponin I 0.256 H* (0.000-0.034) ng/mL Total Protein (6.3-8.2) g/dL Albumin (3.5-5.0) g/dL - EKG Data -: EKG Interpreted by Nv EKG shows normal: sinus rhythm, axis (Indeterminate axis), intervals (Normal), QRS complexes (Low-voltage QRS complexes) Rate: normal (Rate 74 bpm) Past Medical History Past Medical History: No Reported History History of Any Multi-Drug Resistant Organisms: None Reported Past Surgical History: Cholecystectomy Additional Past Surgical History / Comment(s): bunionecty to left foot Past Anesthesia/Blood Transfusion Reactions: No Reported Reaction Past Psychological History: No Psychological Hx Reported Smoking Status: Never smoker Past Alcohol Use History: None Reported Past Drug Use History: None Reported Course Vital Signs 08/19/22 08/19/22 08/20/22 18:19 19:50 00:45 Temperature 98.5 F Pulse Rate 40 L 80 64 Respiratory 16 16 14 Rate Blood Pressure 105/57 99/47 92/47 O2 Sat by Pulse 98 96 97 Oximetry 08/20/22 08/20/22 08/20/22 04:56 06:48 08:31 Temperature Pulse Rate 70 68 67 Respiratory 18 18 18 Rate Blood Pressure 110/50 100/50 90/50 O2 Sat by Pulse 94 L 96 97 Oximetry 08/20/22 13:51 Temperature Pulse Rate 78 Respiratory 18 Rate Blood Pressure 99/51 O2 Sat by Pulse 97 Oximetry - Reevaluation(s) Reevaluation #1: 08/19/22 18:[address] Scott. Patient is outside of window to administer TPA, will have medical management and neurology consultation. Disposition Clinical Impression: Leg weakness, Anemia, Elevated troponin I level, Hyponatremia Disposition: ADMITTED IP TO THIS [facility] Condition: Poor Is patient prescribed a controlled substance at d/c from ED?: No
[2022-08-19 18:54] LABS: Glucose,Whole Blood 129 mg/dL (70-110)
[2022-08-19] MEDS ORDERED: SODIUM CHLORIDE 0.9% 1,000 ML IV ONE (18:55)
[2022-08-19 19:04] LABS: INR 1.2 (<1.2); Partial Thromboplastin Time 27.6 sec (22.0-30.0); Prothrombin Time 12.4 sec (9.0-12.0)
[2022-08-19 19:06] LABS: Anisocytosis Slight; HCT 27.7 % (34.0-46.0); Hypochromasia Slight; MCH 30.5 pg (25.0-35.0); MCHC 31.5 g/dL (31.0-37.0); MCV 96.8 fL (80.0-100.0); Macrocytosis Slight; Mean Platelet Volume 11.6; Poikilocytosis Slight; RBC 2.86 m/uL (3.80-5.40); RDW 18.1 % (11.5-15.5); WBC 3.7 k/uL (3.8-10.6)
[2022-08-19 19:07] LABS: HGB 8.7 gm/dL (11.4-16.0)
[2022-08-19 19:08] LABS: Platelet Count 45 k/uL (150-450)
--- NOTE | 2022-08-19 19:09 | CT ---
EXAMINATION TYPE: CT brain wo con for TPA DATE OF EXAM: 08/19/2022 COMPARISON: None HISTORY: Neuro deficit, acute, stroke suspected CT DLP: 1243.8 mGycm Automated exposure control for dose reduction was used. Images of the brain obtained without contrast. There is wedge-shaped 4 cm area of hypodensity in the right temporal lobe consistent with subacute in farct. No mass effect. No midline shift. No sign of intracranial hemorrhage. There is a 2 cm calcific ation adjacent to the posterior right-sided cerebral falx and consistent with falx meningioma. No adj acent edema. There is cerebral cortical atrophy. No midline shift. IMPRESSION: Subacute right posterior temporal lobe infarct. Cerebral atrophy. Right-sided falx meningioma.
[2022-08-19 19:21] LABS: ALT 12 U/L (4-34); AST 18 U/L (14-36); African American GFR (CKD) >90 (>60 ml/min/1.73 sqM); Albumin 1.8 g/dL (3.5-5.0); Alkaline Phosphatase 84 U/L (38-126); Anion Gap 5 mmol/L; Blood Urea Nitrogen 17 mg/dL (7-17); Calcium 6.9 mg/dL (8.4-10.2); Carbon Dioxide 23 mmol/L (22-30); Chloride 101 mmol/L (98-107); Glucose 101 mg/dL (74-99); Non-African American GFR(CKD) 88 (>60 ml/min/1.73 sqM); Potassium 3.7 mmol/L (3.5-5.1); Sodium 129 mmol/L (137-145); Total Bilirubin 0.4 mg/dL (0.2-1.3); Total Protein 3.7 g/dL (6.3-8.2)
--- NOTE | 2022-08-19 19:23 | XR ---
EXAMINATION TYPE: XR chest 2V DATE OF EXAM: 08/19/2022 COMPARISON: 06/19/2022 HISTORY: Altered mental status TECHNIQUE: 2 views FINDINGS: Heart is normal. There is blunting left costophrenic angle and infiltrate posteriorly in th e left lower lobe. No heart failure seen. There is bilateral breast implants with calcification. No m ediastinal adenopathy. There are no hilar masses. IMPRESSION: Left pleural effusion and left lower lobe infiltrate are increased compared to last exam.
[2022-08-19 19:33] LABS: Band Neutrophils % 1 %; Lymphocytes # (M) 1.11 k/uL (1.0-4.8); Monocytes # (M) 0.11 k/uL (0-1.0); Neutrophils % (M) 66 %; Nucleated Red Blood Cells 0 /100 WBC (0-0); Total Cells Counted 100
[2022-08-19] MEDS ORDERED: PIPERACILLIN-TAZOBACTAM 3.375 GM in SODIUM CHLORIDE 0.9% 100 ML IVPB STA (19:53)
[2022-08-19] MEDS ORDERED: AZITHROMYCIN 500 MG in SODIUM CHLORIDE 0.9% 250 ML IVPB STA (19:53)
--- NOTE | 2022-08-19 20:14 | CT ---
EXAMINATION TYPE: CT angio head neck DATE OF EXAM: 08/19/2022 COMPARISON: None HISTORY: Neuro deficit, acute, stroke suspected CT DLP: 349.3 mGycm Automated exposure control for dose reduction was used. CONTRAST: Performed with IV Contrast, patient injected with 65ml mL of Isovue 370. Images obtained from the aortic arch to the vertex of the brain with the IV contrast. There are 3-D post processed images. There is a moderate left pleural effusion. There is normal branching pattern of the great vessels fro m the aortic arch. There is bilateral arterial flow in the subclavian arteries. There is arterial saran w in the common internal and external carotid arteries bilaterally. There is mild plaque formation at the carotid artery bifurcations. There is arterial flow in both vertebral arteries. No evidence of c arotid or vertebral artery aneurysm or dissection. There is arterial flow in the anterior middle and posterior cerebral arteries bilaterally. There is a rterial flow in the vertebral basilar artery system. There is hypodensity in the right posterior temp oral lobe and consistent with subacute infarct. No mass effect. There is no evidence of intracranial aneurysm or neovascularity. No evidence of intracranial hemodynamic arterial stenosis. No evidence of any significant stenosis of the right middle cerebral artery. There is normal enhancement of the danny ous sinuses. IMPRESSION: Negative CT angiogram of the brain. Negative CT angiogram of the neck. Minimal calcification at the c arotid artery bifurcations. No hemodynamic stenosis. Hypodensity right temporal lobe and posterior parietal lobe consistent with subacute infarct.
[2022-08-19] MEDS ORDERED: ACETAMINOPHEN TAB 325 MG TAB PO PRN (20:52)
[2022-08-19] MEDS ORDERED: ASPIRIN 325 MG TAB PO STA (20:52)
[2022-08-19] MEDS: SODIUM CHLORIDE 0.9% 1,000 ML IV SCH (21:52)
[2022-08-20] MEDS: FAMOTIDINE 20 MG TAB PO SCH ×3 (00:47→08:28)
[2022-08-20] MEDS: SODIUM CHLORIDE 0.9% 1,000 ML IV SCH ×3 (08:28→22:27)
[2022-08-20] MEDS ORDERED: ASPIRIN 325 MG TAB PO SCH (09:00)
[2022-08-20 09:18] LABS: HDL Cholesterol 23.9 mg/dL (40.00-60.00); Triglycerides 46.6 mg/dL (0.00-149.00)
[2022-08-20 09:30] LABS: Chol/HDL Ratio 2.27 Ratio; LDL Cholesterol,Direct Reflex 20.9 mg/dL (0.00-129.00)
--- NOTE | 2022-08-20 10:01 | P.CRDCN ---
History of Present Illness Consult date: 08/20/22 History of present illness: HISTORY OF PRESENT ILLNESS: This is a 77-year-old female with a past medical history significant for ovarian cancer currently undergoing chemotherapy (last treatment 2.5 weeks ago). 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 We have been asked to see the patient in consultation for abnormal troponins. Patient examined at the bedside. Patient states yesterday around 1:00 in the afternoon she began having weakness in her legs. She states the weakness was in both of her legs but the right leg was worse in the left. She denies any weakness in her arms. She also reports that she had some slurred speech. She states her weakness has resolved although she thinks her speech is still a little slurred. She denied having any chest pain or pressure. She denies any shortness of breath. Denies any dizziness or lightheadedness. Denies any palpitations. * EKG reveals sinus mechanism with no signs of acute ischemia * Chest xray left pleural effusion and left lower lobe infiltrate increased compared to last exam * CT of the brain: Subacute right posterior temporal lobe infarct. Cerebral atrophy. Right sided falx meningioma * Laboratory data: WBC 3.7. Hemoglobin 8.7. Platelet count 45. Sodium 129. Potassium 3.7. BUN 17. Creatinine 0.60. Troponin 0.256. 0.298. 0.157. * Current home cardiac medications include none REVIEW OF SYSTEMS: At the time of my exam: CONSTITUTIONAL: Denies fever or chills. HEENT: Denies blurred vision, vision changes, or eye pain. Denies hemoptysis CARDIOVASCULAR: Denies chest pain. Denies orthopnea. Denies PND. Denies palpitations RESPIRATORY: Denies shortness of breath. GASTROINTESTINAL: Denies abdominal pain. Denies nausea or vomiting. HEMATOLOGIC: Denies bleeding disorders. GENITOURINARY: Denies any blood in urine. SKIN: Denies pruitis. Denies rash. PHYSICAL EXAM: VITAL SIGNS: Reviewed. GENERAL: Well-developed in no acute distress. HEENT: Head is normocephalic. Pupils are equal, round. Sclerae anicteric. Mucous membranes of the mouth are moist. Neck supple. No JVD or thyromegaly LUNGS: Respirations even and unlabored. Lungs essentially clear to auscultation bilaterally. HEART: Regular rate and rhythm. S1 and S2 heard. ABDOMEN: Soft. Nondistended. Nontender. EXTREMITIES: Normal range of motion. No clubbing or cyanosis. Peripheral pulses intact. No lower extremity edema NEUROLOGIC: Awake and alert. Oriented x 3. ASSESSMENT: Subacute right posterior temporal lobe infarct Abnormal troponins, likely secondary to above, Type II DE Ovarian cancer, undergoing chemotherapy PLAN: Obtain 2D echo to assess cardiac structure and function Check lipid panel Neurology consulted. Await evaluation Further recommendations pending patient course Nurse practitioner note has been reviewed by physician. Signing provider agrees with the documented findings, assessment, and plan of care. Past Medical History Past Medical History: No Reported History History of Any Multi-Drug Resistant Organisms: None Reported Past Surgical History: Cholecystectomy Additional Past Surgical History / Comment(s): bunionecty to left foot Past Anesthesia/Blood Transfusion Reactions: No Reported Reaction Past Psychological History: No Psychological Hx Reported Smoking Status: Never smoker Past Alcohol Use History: None Reported Past Drug Use History: None Reported Medications and Allergies Home Medications Medication Instructions Recorded Confirmed Type Loperamide HCl [Imodium A-D] 2 - 4 mg PO QID PRN 06/17/22 08/19/22 History traMADol HCL 50 mg PO TID PRN 07/05/22 08/19/22 History Ondansetron [Zofran] 4 mg PO Q6H PRN 08/09/22 08/19/22 History OLANZapine [ZyPREXA] 2.5 mg PO HS 08/19/22 08/19/22 History Allergies Allergy/AdvReac Type Severity Reaction Status Date / Time No Known Allergies Allergy Verified 08/19/22 18:20 Physical Exam Vitals: Vital Signs Temp Pulse Resp BP Pulse Ox 08/20/22 06:48 68 18 100/50 96 08/20/22 04:56 70 18 110/50 94 L 08/20/22 00:45 64 14 92/47 97 08/19/22 19:50 80 16 99/47 96 08/19/22 18:19 98.5 F 40 L 16 105/57 98 Intake and Output 08/19/22 08/20/22 08/20/22 22:59 06:59 14:59 Other: Weight 59.874 kg Results 08/19/22 18:48 08/19/22 18:48 Cardiac Enzymes 11/01/0508/19/22 08/19/22 Range/Units 18:48 18:48 22:21 AST 18 (14-36) U/L Troponin I 0.256 H* 0.298 H* (0.000-0.034) ng/mL 08/20/22 Range/Units 02:24 AST (14-36) U/L Troponin I 0.157 H* (0.000-0.034) ng/mL Coagulation 08/19/22 Range/Units 18:48 PT 12.4 H (9.0-12.0) sec APTT 27.6 (22.0-30.0) sec CBC 08/19/22 Range/Units 18:48 WBC 3.7 L (3.8-10.6) k/uL RBC 2.86 L (3.80-5.40) m/uL Hgb 8.7 L D (11.4-16.0) gm/dL Hct 27.7 L (34.0-46.0) % Plt Count 45 L (150-450) k/uL Comprehensive Metabolic Panel 08/19/22 Range/Units 18:48 Sodium 129 L (137-145) mmol/L Potassium 3.7 (3.5-5.1) mmol/L Chloride 101 (98-107) mmol/L Carbon Dioxide 23 (22-30) mmol/L BUN 17 (7-17) mg/dL Creatinine 0.60 (0.52-1.04) mg/dL Glucose 101 H (74-99) mg/dL Calcium 6.9 L (8.4-10.2) mg/dL AST 18 (14-36) U/L ALT 12 (4-34) U/L Alkaline Phosphatase 84 (38-126) U/L Total Protein 3.7 L (6.3-8.2) g/dL Albumin 1.8 L (3.5-5.0) g/dL Current Medications Generic Name Dose Route Start Last Admin Trade Name Freq PRN Reason Stop Dose Admin Acetaminophen 650 mg 08/19/22 20:52 Acetaminophen Tab 325 Mg Tab PO Q6HR PRN Pain Aspirin 325 mg 08/20/22 09:00 Aspirin 325 Mg Tab PO DAILY MEDARDO Famotidine 20 mg 08/19/22 21:00 08/20/22 07:13 Famotidine 20 Mg Tab PO Not Given BID MEDARDO Sodium Chloride 1,000 mls @ 100 mls/hr 08/19/22 21:00 08/19/22 21:52 Saline 0.9% IV 100 mls/hr .Q10H MEDARDO Administration Intake and Output 08/19/22 08/20/22 08/20/22 22:59 06:59 14:59 Other: Weight 59.874 kg 08/19/22 18:48 08/19/22 18:48
[2022-08-20] MEDS ORDERED: traMADol 50 MG TAB PO PRN (12:08)
[2022-08-20] MEDS ORDERED: ONDANSETRON 4 MG TAB PO PRN (12:08)
--- NOTE | 2022-08-20 12:14 | P.HPIM ---
History of Present Illness Patient is a pleasant 77-year-old the female with history of ovarian cancer receiving chemotherapy and last chemotherapy about a week ago came in with complaints of weakness in the right leg. Patient is unable to get up from the chair patient does have generalized weakness from her cancer and chemotherapy patient has nasal chest is scheduled to hold on chemotherapy on Tuesday. Patient denied any tingling numbness patient's symptoms started last night at 9 PM with speech problems and some confusion all of which resolved at this time. Patient doesn't have any other focal weakness. Patient denied any headache nausea vomiting. CT of the head showed possible stroke subacute in the posterior right temporal lobe which doesn't explain her symptoms. CT angios the head and neck did not show any significant abnormality. Chest x-ray was read as left pleural effusion with left lower lobe infiltrate increased compared to last exam. Unfortunately and unable to open images. Unable reading is as per the radiologist because of which patient was started on antibiotics Zosyn and azithromycin patient is not leukopenic but does have thrombocytopenia probably from chemotherapy doesn't have any fever chills doesn't have any leukocytosis. Patient has minimally elevated flat troponins because of which neurology evaluated the patient patient doesn't have any acute microinfarction at this time. Her neuro symptoms completely resolved at this time due to patient received blood transfusion about a week ago. REVIEW OF SYSTEMS: CONSTITUTIONAL: No fever, no malaise, no fatigue. HEENT: No recent visual problems or hearing problems. Denied any sore throat. CARDIOVASCULAR: No chest pain, orthopnea, PND, no palpitations, no syncope. PULMONARY: No shortness of breath, no cough, no hemoptysis. GASTROINTESTINAL: No diarrhea, no nausea, no vomiting, no abdominal pain. NEUROLOGICAL: No headaches, no numbness. HEMATOLOGICAL: Denies any bleeding or petechiae. GENITOURINARY: Denies any burning micturition, frequency, or urgency. MUSCULOSKELETAL/RHEUMATOLOGICAL: Denies any joint pain, swelling, or any muscle pain. ENDOCRINE: Denies any polyuria or polydipsia. The rest of the 14-point review of systems is negative. PHYSICAL EXAMINATION: GENERAL: The patient is alert and oriented x3, not in any acute distress. Well developed, well nourished. HEENT: Pupils are round and equally reacting to light. EOMI. No scleral icterus. No conjunctival pallor. Normocephalic, atraumatic. No pharyngeal erythema. No thyromegaly. CARDIOVASCULAR: S1 and S2 present. No murmurs, rubs, or gallops. PULMONARY: Chest is clear to auscultation, no wheezing or crackles. ABDOMEN: Soft, nontender, nondistended, normoactive bowel sounds. No palpable organomegaly. MUSCULOSKELETAL: No joint swelling or deformity. EXTREMITIES: No cyanosis, clubbing, or pedal edema. NEUROLOGICAL: Gross neurological examination did not reveal any focal deficits. SKIN: No rashes. Assessment and plan possible TIA: Continue with aspirin and statin obtain lipid panel MRI is being obtained at this time. Neurology was consulted physical therapy occupational therapy consultation -Generalized weakness secondary to cancer and chemotherapy -Hyponatremia appears to have hyporvolemic hyponatremia patient will be continued on IV fluids -Low clinical suspicion of pneumonia we'll obtain a pro-calcitonin level until then we will continue with antibiotics -Minimal a flat troponin elevation: Cardiology evaluated the patient doesn't appear to have any microinfarction further management as per cardiology -Ovarian cancer on chemotherapy as mentioned above -Pancytopenia secondary to chemotherapy patient has scheduled chemotherapy on Tuesday DVT prophylaxis: SCDs no pharmacological DVT prophylaxis because of low platelet count Past Medical History Past Medical History: No Reported History History of Any Multi-Drug Resistant Organisms: None Reported Past Surgical History: Cholecystectomy Additional Past Surgical History / Comment(s): bunionecty to left foot Past Anesthesia/Blood Transfusion Reactions: No Reported Reaction Past Psychological History: No Psychological Hx Reported Smoking Status: Never smoker Past Alcohol Use History: None Reported Past Drug Use History: None Reported Medications and Allergies Home Medications Medication Instructions Recorded Confirmed Type Loperamide HCl [Imodium A-D] 2 - 4 mg PO QID PRN 06/17/22 08/19/22 History traMADol HCL 50 mg PO TID PRN 07/05/22 08/19/22 History Ondansetron [Zofran] 4 mg PO Q6H PRN 08/09/22 08/19/22 History OLANZapine [ZyPREXA] 2.5 mg PO HS 08/19/22 08/19/22 History Allergies Allergy/AdvReac Type Severity Reaction Status Date / Time No Known Allergies Allergy Verified 08/19/22 18:20 Physical Exam Vitals: Vital Signs Temp Pulse Resp BP Pulse Ox 08/20/22 08:31 67 18 90/50 97 08/20/22 06:48 68 18 100/50 96 08/20/22 04:56 70 18 110/50 94 L 08/20/22 00:45 64 14 92/47 97 08/19/22 19:50 80 16 99/47 96 08/19/22 18:19 98.5 F 40 L 16 105/57 98 Intake and Output 08/19/22 08/20/22 08/20/22 22:59 06:59 14:59 Other: Weight 59.874 kg Results CBC & Chem 7: 08/19/22 18:48 08/19/22 18:48 Labs: Abnormal Lab Results - Last 24 Hours (Table) 08/19/22 08/19/22 08/19/22 Range/Units 18:48 18:48 18:48 WBC 3.7 L (3.8-10.6) k/uL RBC 2.86 L (3.80-5.40) m/uL Hgb 8.7 L D (11.4-16.0) gm/dL Hct 27.7 L (34.0-46.0) % RDW 18.1 H (11.5-15.5) % Plt Count 45 L (150-450) k/uL PT 12.4 H (9.0-12.0) sec INR 1.2 H (<1.2) Sodium 129 L (137-145) mmol/L Glucose 101 H (74-99) mg/dL POC Glucose (mg/dL) (70-110) mg/dL Calcium 6.9 L (8.4-10.2) mg/dL Troponin I (0.000-0.034) ng/mL Total Protein 3.7 L (6.3-8.2) g/dL Albumin 1.8 L (3.5-5.0) g/dL HDL Cholesterol (40.00-60.00) mg/dL 08/19/22 08/19/22 08/19/22 Range/Units 18:48 18:52 22:21 WBC (3.8-10.6) k/uL RBC (3.80-5.40) m/uL Hgb (11.4-16.0) gm/dL Hct (34.0-46.0) % RDW (11.5-15.5) % Plt Count (150-450) k/uL PT (9.0-12.0) sec INR (<1.2) Sodium (137-145) mmol/L Glucose (74-99) mg/dL POC Glucose (mg/dL) 129 H (70-110) mg/dL Calcium (8.4-10.2) mg/dL Troponin I 0.256 H* 0.298 H* (0.000-0.034) ng/mL Total Protein (6.3-8.2) g/dL Albumin (3.5-5.0) g/dL HDL Cholesterol (40.00-60.00) mg/dL 08/20/22 08/20/22 Range/Units 02:24 02:24 WBC (3.8-10.6) k/uL RBC (3.80-5.40) m/uL Hgb (11.4-16.0) gm/dL Hct (34.0-46.0) % RDW (11.5-15.5) % Plt Count (150-450) k/uL PT (9.0-12.0) sec INR (<1.2) Sodium (137-145) mmol/L Glucose (74-99) mg/dL POC Glucose (mg/dL) (70-110) mg/dL Calcium (8.4-10.2) mg/dL Troponin I 0.157 H* (0.000-0.034) ng/mL Total Protein (6.3-8.2) g/dL Albumin (3.5-5.0) g/dL HDL Cholesterol 23.90 L (40.00-60.00) mg/dL
--- NOTE | 2022-08-20 13:40 | P.CNNES ---
History of Present Illness Consult date: 08/20/22 Requesting physician: Rober Esteban Reason for Consult: Right leg weakness, possible TIA History of Present Illness: Patient is a 77-year-old right-handed female, otherwise healthy, came to the hospital yesterday at 6:05 PM for possible stroke symptoms. Patient states that yesterday morning she was feeling fine. At 1 PM she was at the table with her kids having her lunch. When she stood up, the legs just buckled up and she fell to the ground. She felt it was right leg that was weak. She also noticed some slurred speech. Her son and her helped her into the recliner. She stayed at home, "laid around" for some time, hoping symptoms will go away. As the symptoms persisted, she came to the ER at 6:05 PM. She denied any symptoms related to the upper extremities, problem with the vision, headache. No head trauma. Vital signs arrival blood pressure 105/57, pulse rate 40, temperature 98.5. Blood test shows WBC 3.7 hemoglobin 8.7, platelets are 45. INR is 1.2, PTT 27.6. Sodium 129 potassium 3.7, normal renal functions. Hepatic panel is normal. Troponin are mildly elevated. Cholesterol 54, LDL 20, HDL 23 and triglycerides 46. Lorenzo virus PCR negative. Patient's B12 is normal 358, B1 4 4 and methylmalonic acid 0.21. Folate is 15.10. CT head showed subacute right posterior temporal lobe infarct. Cerebral atrophy, right-sided falx meningioma. I personally reviewed CT head, agree with the findings, although appears somewhat posterior parietal/temporal region. CTA of head and neck reported as "negative". Minimal calcification at the carotid artery bifurcation. No hemodynamic stenosis. Chest x-ray showed left pleural effusion and left lower lobe infiltrate are increased compared to last exam. EKG shows sinus rhythm. Medications include Imodium, tramadol, Zofran, Zyprexa 2.5 mg at bedtime. Patient does not take any antiplatelet medication at home. Patient states that she usually has low blood pressure. Denies diabetes. No previous history of strokes or TIA. She never smoked, does not drink alcohol. 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 Patient denies any history of cancers. Review of Systems Constitutional: Denies chills, Denies fever Eyes: denies blurred vision, denies pain Ears, nose, mouth and throat: Denies headache, Denies sore throat Cardiovascular: Denies chest pain, Denies shortness of breath Respiratory: Reports cough, Denies hemoptysis, Denies wheezing Gastrointestinal: Denies abdominal pain, Denies diarrhea, Denies nausea, Denies vomiting Genitourinary: Denies dysuria, Denies hematuria Musculoskeletal: Denies myalgias Integumentary: Denies pruritus, Denies rash Neurological: Reports as per HPI Psychiatric: Denies anxiety, Denies depression Endocrine: Denies fatigue, Denies weight change Hematologic/Lymphatic: Denies easy bruising Allergic/Immunologic: Denies persistent infections Past Medical History Past Medical History: No Reported History History of Any Multi-Drug Resistant Organisms: None Reported Past Surgical History: Cholecystectomy Additional Past Surgical History / Comment(s): bunionecty to left foot Past Anesthesia/Blood Transfusion Reactions: No Reported Reaction Past Psychological History: No Psychological Hx Reported Smoking Status: Never smoker Past Alcohol Use History: None Reported Past Drug Use History: None Reported Medications and Allergies Home Medications Medication Instructions Recorded Confirmed Type Loperamide HCl [Imodium A-D] 2 - 4 mg PO QID PRN 06/17/22 08/19/22 History traMADol HCL 50 mg PO TID PRN 07/05/22 08/19/22 History Ondansetron [Zofran] 4 mg PO Q6H PRN 08/09/22 08/19/22 History OLANZapine [ZyPREXA] 2.5 mg PO HS 08/19/22 08/19/22 History Allergies Allergy/AdvReac Type Severity Reaction Status Date / Time No Known Allergies Allergy Verified 08/19/22 18:20 Physical Examination - Vital Signs Vital Signs: Vital Signs Temp Pulse Resp BP Pulse Ox 08/20/22 08:31 67 18 90/50 97 08/20/22 06:48 68 18 100/50 96 08/20/22 04:56 70 18 110/50 94 L 08/20/22 00:45 64 14 92/47 97 08/19/22 19:50 80 16 99/47 96 08/19/22 18:19 98.5 F 40 L 16 105/57 98 Intake and Output 08/19/22 08/20/22 08/20/22 22:59 06:59 14:59 Other: Weight 59.874 kg Patient is an elderly female, very pleasant, in no acute distress. Patient is alert awake oriented to time place and person. She knows it is August 2022 and that she is in [facility]. Speech and language functions are normal. Patient can name and repeat very well. Patient was able to name objects like earlobe, knuckles. No aphasia or dysarthria, although patient believes that she has slight dysarthria. No paraphasic errors noted. Attention, concentration and fund of knowledge is adequate. On cranial nerve examination, pupils are equal, round and reacting to light, visual dhaliwal are full on confrontation, with no neglect on double simultaneous stimulation. Extraocular muscles are intact with no nystagmus. Patient has very minimal right facial asymmetry, tongue protrudes to the midline. Palatal elevation and sensation normal, hearing is slightly decreased (uses hearing aid) and shoulder shrug normal, facial sensation normal. On muscle strength testing, there is no pronator drift and the strength is normal in arms and legs distally and proximally, except right ankle dorsiflexion which is 5-, and hip flexion 4 on the right, 4-left. Deep tendon reflexes are symmetric biceps 1, brachioradialis trace, knee 1, ankle 1 and plantar is upgoing on the right, downgoing on the left. Sensory to touch is equal bilaterally in the arms and legs. She often neglects left side in the arm and leg with double simultaneous stimulation. Cerebellar function showed mild dysmetria for [id number] testing on the left. No dysdiadochokinesia. No ataxia for [id number] testing on either side. Tone and bulk of muscles normal. Gait deferred.. On general examination, there is no carotid bruit or murmur, S1-S2 audible. Chest is clear on consultation. Abdomen is soft nontender. No organomegaly, bowel sounds present. Peripheral pulses are present. No edema. Results - Laboratory Findings CBC and BMP: 08/19/22 18:48 08/19/22 18:48 Abnormal Lab Findings: Abnormal Labs 08/19/22 08/19/22 08/19/22 18:48 18:48 18:48 WBC 3.7 L RBC 2.86 L Hgb 8.7 L D Hct 27.7 L RDW 18.1 H Plt Count 45 L PT 12.4 H INR 1.2 H Sodium 129 L Glucose 101 H POC Glucose (mg/dL) Calcium 6.9 L Troponin I Total Protein 3.7 L Albumin 1.8 L HDL Cholesterol 08/19/22 08/19/22 08/19/22 18:48 18:52 22:21 WBC RBC Hgb Hct RDW Plt Count PT INR Sodium Glucose POC Glucose (mg/dL) 129 H Calcium Troponin I 0.256 H* 0.298 H* Total Protein Albumin HDL Cholesterol 08/20/22 08/20/22 02:24 02:24 WBC RBC Hgb Hct RDW Plt Count PT INR Sodium Glucose POC Glucose (mg/dL) Calcium Troponin I 0.157 H* Total Protein Albumin HDL Cholesterol 23.90 L Assessment and Plan Assessment: * Probable acute ischemic stroke. CT of the head revealed subacute right posterior parietal temporal infarct, although her clinical symptoms are ipsilateral involving the right lower extremity weakness. Examination also revealed some sensory neglect on the left side. Need to rule out multifocal infarction. Rule out cardiac source. Patient was not a candidate for TPA, as she came outside the window for TPA. No large vessel occlusion reported on CTA. Patient's current NIH stroke scale is 3. * Elevated cardiac enzymes * Mild pancytopenia. Exact cause uncertain. * Known history of cerebral meningioma, stable. Plan: * MRI of the brain with and without contrast evaluate for an acute stroke, rule out mass lesion. * 2-D echo pending * Lipid panel with cholesterol 54, LDL 20, HDL 23 and triglycerides 46. No indication for statins. * Continue aspirin 325 mg daily for now. I will definitely avoid dual antiplatelet medication because of thrombocytopenia. * Consider hematology consultation for pancytopenia. * Telemetric monitoring to rule out arrhythmia. Cardiology on board. * Neurology will follow. Thank you for the consult. Addendum 4:50 PM: Nurse juan served at 4:38 PM that patient has acute change in mental status at 4:30 PM. Patient was fine at 4 AM and when she went in at 4:30 PM to check vitals, patient was aphasic, right hemiplegic. Patient was scheduled for MRI of the brain at 5 PM. I came over to see the patient and patient was completely aphasic, right hemiplegic, with NIH stroke scale of 28, mainly related to global aphasia and complete flaccid right hemiplegia and right-sided neglect. Spoke to , neuro intervention. Patient was not a candidate for TPA as she has a recent stroke. Patient underwent stat CT head, CTA of head and neck, which revealed complete occlusion of the left MCA. MRI of the brain was done, which revealed large to massive stroke involving the left MCA. Images were reviewed by myself and Dr. Brandt, and patient was not a candidate for thrombectomy because of multiple reasons including thrombocytopenia, ovarian cancer (stage 3-4) per family members, MRI of the brain already showing stroke out left MCA territory with abnormal signal on the DWI and ADC mapping. With thrombectomy, patient was high risk for secondary hemorrhage because of thromb ocytopenia. Due to all these risk factors, patient was not a candidate for thrombectomy. I called patient's , and patient's son was also present there. Informed them about the previous and the current stroke, and the workup performed and overall prognosis. 2-D echo revealed normal left-ventricular systolic function, moderate pulmonary hypertension, mild MR, moderate TR, small to medium cardiac effusion. Large pleural effusion. No obvious embolic source. It also appears patient has only and cancer, which according to the family members is between stage III to stage IV, they were not sure. Transfer patient to ICU. Dr. Jun Sherwood will resume neurology service in the morning. I spent an additional one hour in the acute care including coordinating care between the nurse, neuro intervention and patient's family. Time with Patient: Greater than 30
[2022-08-20 16:42] LABS: Glucose,Whole Blood 144 mg/dL (70-110)
--- NOTE | 2022-08-20 16:43 | CA ---
Transthoracic Echo Report Name: Lesly Carr Age: 77 Gender: F : 1945 Exam Date: 08/20/2022 10:06 Exam Location: [place] [facility] Ht (in): 63 Wt (lb): 142 Ordering Physician: Ruma White Attending/Referring Phys: [id number], Cindy [employer] Jazmín Patel, ANDI Procedure CPT: Indications: LV function, abnormal trops Cardiac Hx: Technical Quality: Contrast 1: Total Dose (mL): Contrast 2: Total Dose (mL): MEASUREMENTS (Male / Female) Normal Values M-MODE Aortic Root Diameter MM 2.5 cm LA Systolic Diameter MM 3.9 cm LA Ao Ratio MM 1.6 MV E Point Septal Separation 0.3 cm AV Cusp Separation MM 2.2 cm DOPPLER MV Area PHT 3.9 cm??? Mitral E Point Velocity 88.6 cm/s Mitral A Point Velocity 97.8 cm/s Mitral E to A Ratio 0.9 MV Deceleration Time 195.8 ms TR Peak Velocity 360.3 cm/s TR Peak Gradient 51.9 mmHg Right Ventricular Systolic Press 53.7 mmHg FINDINGS Left Ventricle Left ventricular ejection fraction is estimated at 50-55%. Right Ventricle Normal right ventricular size and function. Moderate pulmonary hypertension. Right ventricular systolic pressure estimated at 54 mm hg. Right Atrium Normal right atrial size. Left Atrium Left atrial dilatation. Mitral Valve Structurally normal mitral valve. Mild mitral regurgitation. Aortic Valve Trileaflet aortic valve. Tricuspid Valve Structurally normal tricuspid valve. Moderate tricuspid regurgitation. Pulmonic Valve Structurally normal pulmonic valve. Pericardium Mild to moderate pericardial effusion: Large pleural effusion. Aorta Normal size aortic root and proximal ascending aorta. CONCLUSIONS Normal LV systolic function Moderate pulmonary hypertension Mild mitral regurgitation Moderate tricuspid regurgitation Small to medium cardial effusion Large pleural effusion Previewed by: Dr. Fareed Victoria MD (Electronically Signed) Final Date: 20 August 2022 16:42
--- NOTE | 2022-08-20 18:17 | CT ---
EXAMINATION TYPE: CODE STROKE: CT brain wo contr CT DLP: 1162.6 mGycm, Automated exposure control for dose reduction was used. DATE OF EXAM: 08/20/2022 6:01 PM COMPARISON: Prior CT Brain from 08/19/2022. CLINICAL INDICATION:Female, 77 years old with history of Evolving stroke, TECHNIQUE: Brain: Axial CT images of the brain were obtained with coronal and sagittal reformats created and rev iewed. Contrast used: None. Oral contrast used: None. FINDINGS: Brain: Extra-axial spaces: No abnormal extra-axial fluid collections. Right-sided falx meningioma. Ventricular system: Within normal limits Cerebral parenchyma: Low-attenuation in the right parietal lobe has a similar distribution. There is new subtle loss of differentiation within the left MCA territory. No acute intraparenchymal hemorrhag e or mass effect. The remainder of the beth-white junctions are well differentiated. Cerebellum: Unremarkable. Mass effect: No evidence of midline shift. Intracranial vasculature: Atherosclerotic calcifications of the intracranial vessels. Questionable hy perdense diameter in the left sylvian fissure series 2022 image 21. Soft tissues: Normal. Calvarium/osseous structures: No depressed skull fracture. Paranasal sinuses and mastoid air cells: Mild scattered paranasal sinus disease. Visualized orbits: Orbital contents are intact. IMPRESSION: 1. New left MCA territory acute/subacute infarct. Questionable left MCA hyperdense vessel sign. Atte ntion on follow-up CTA head neck. 2. Subacute infarct of the right frontal lobe. Findings communicated to patients nurse on 08/20/2022 6:[address] Marty Boland.
--- NOTE | 2022-08-20 18:42 | CT ---
EXAMINATION TYPE: CODE STROKE: CTA head neck CT DLP: 352.3 mGycm, Automated exposure control for dose reduction was used. DATE OF EXAM: 08/20/2022 6:23 PM COMPARISON: One day prior.. CLINICAL INDICATION:Female, 77 years old with history of evolving stroke; TECHNIQUE: Axially acquired helical CT angiogram of the head and neck was obtained with contrast. Axi al images are supplemented with 3D reconstructions which [facility] NASCET criteria used. Contrast used:65 mL of Isovue 370 with IV Contrast, Oral contrast used: None. FINDINGS: CTA HEAD: No evidence of acute intracranial hemorrhage, mass effect, or midline shift. The ventricles, sulci, a nd cisterns are unremarkable. The visualized portions of the internal carotid arteries, right middle cerebral artery, anterior cere bral arteries, and posterior cerebral arteries are patent. The left cerebral artery demonstrates paucity of vessels within the left MCA territory, best apprecia agustín on series 411 image 50. There is a filling defect seen on sagittal series 415 image 51 involving the M2 portion of the MCA consistent with occlusion. The basilar and vertebral arteries are patent. Left dominant vertebral arteries. CTA NECK: Right Carotid System: The common carotid artery and external carotid artery are patent. The carotid bifurcation demonstrate s no evidence of hemodynamically significant stenosis. The remaining portions of the internal carotid artery demonstrate normal size without significant narrowing. Left Carotid System: The common carotid artery and external carotid artery are patent. The carotid bifurcation demonstrate s no evidence of hemodynamically significant stenosis. The remaining portions of the internal carotid artery demonstrate normal size without significant narrowing. Vertebral arteries are patent without evidence hemodynamically significant stenosis. There is a three-vessel aortic arch. The origins of the great vessels are patent. No evidence of hemo dynamically significant stenosis. Bilateral pleural effusions. Left greater than right. Partially visualized breast implants. IMPRESSION: 1. Occlusion of the left M2 segment with evolving infarct of the left MCA territory. 2. Visualized vertebral and carotid arteries are otherwise patent.
--- NOTE | 2022-08-20 18:51 | MR ---
EXAMINATION TYPE: MR brain wo con DATE OF EXAM: 08/20/2022 6:37 PM COMPARISON: CT head same day.. CLINICAL INDICATION:Female, 77 years old with history of CVA, meningioma; TECHNIQUE: Multi planar, multi sequence imaging was performed through the brain including: T1, T2, In version recovery, Diffusion weighted imaging, and gradient echo imaging. No gadolinium was given. FINDINGS: Scattered areas of restricted diffusion including the right parietal lobe and left MCA territory. Oth er foci of restricted diffusion is seen throughout the brain including frontal lobes right kathleen rad iata, right cerebellar hemisphere, and left cerebellar hemisphere. The ventricular system, and cisterns appear unremarkable. Right posterior skull falx meningioma note d. The bone marrow signal is within normal limits. The paranasal sinuses and globes are unremarkable. IMPRESSION: 1. Acute/subacute infarct of the left MCA territory. 2. Acute/subacute infarct of the right parietal lobe. Scattered microinfarcts involving premature all vascular territories correlate for embolic phenomenon . Findings communicated to patients nurse on 08/20/2022 6:[address] Marty Boland.
--- NOTE | 2022-08-20 18:54 | MR ---
EXAMINATION TYPE: MR angio head wo con DATE OF EXAM: 08/20/2022 6:31 PM CLINICAL INDICATION:Female, 77 years old with history of evolving stroke; COMPARISON: CT abdomen and MRI brain same day. Technical: Technical: 3-D [id number] Axial with MIP reconstruction. IV Contrast: None Findings: Vertebral arteries: The vertebral arteries are patent. The left vertebral artery is dominant. Basilar artery: The basilar artery is intact. The basilar artery bifurcation is normal. Internal Carotid arteries: The cervical, petrous, cavernous and supraclinoid segments are normal. PANCHITO: Patent with no evidence of aneurysm. ACOM: Present without evidence of aneurysm. MCA: Left M2 segment filling defect is better appreciated on CT same day. The right MCA territory is intact. INFORMATION STRATEGIST: Patent with no evidence of aneurysm. PCOM: Hypoplastic bilaterally. IMPRESSION: Left M2 segment of the filling defect is better better appreciated on CT same day. Additional MR brai n same day showing scattered microinfarcts, left MCA territory and right parietal lobe infarcts.
[2022-08-20 20:57] LABS: Glucose,Whole Blood 112 mg/dL (70-110)
[2022-08-20] MEDS ORDERED: OLANZapine 2.5 MG TAB PO SCH (21:00)
[2022-08-20 21:36] LABS: Anisocytosis Slight; Basophils # (A) 0.1 k/uL (0-0.2); Basophils % (A) 3 %; Eosinophils % (A) 0 %; HCT 30.8 % (34.0-46.0); HGB 9.7 gm/dL (11.4-16.0); Hypochromasia Moderate; Lymphocytes % (A) 19 %; MCH 31.4 pg (25.0-35.0); MCHC 31.6 g/dL (31.0-37.0); MCV 99.3 fL (80.0-100.0); Macrocytosis Slight; Mean Platelet Volume 10.5; Monocytes # (A) 0.2 k/uL (0-1.0); Monocytes % (A) 5 %; Neutrophils # (A) 3.7 k/uL (1.3-7.7); Neutrophils % (A) 71 %; Poikilocytosis Slight; RDW 18.2 % (11.5-15.5); WBC 5.2 k/uL (3.8-10.6)
[2022-08-20 21:55] LABS: African American GFR (CKD) >90 (>60 ml/min/1.73 sqM); Anion Gap 4 mmol/L; Blood Urea Nitrogen 12 mg/dL (7-17); Calcium 6.7 mg/dL (8.4-10.2); Carbon Dioxide 23 mmol/L (22-30); Chloride 106 mmol/L (98-107); Glucose 104 mg/dL (74-99); Non-African American GFR(CKD) 90 (>60 ml/min/1.73 sqM); Potassium 3.6 mmol/L (3.5-5.1); Sodium 133 mmol/L (137-145)
[2022-08-20] MEDS ORDERED: Potassium Replacement Protocol 1 EACH MISC MISCELLANE PRN (22:13)
[2022-08-20 22:15] LABS: Platelet Count 56 k/uL (150-450)
[2022-08-20 22:19] LABS: Poikilocytosis (M) Present
[2022-08-20] MEDS: POTASSIUM CHLORIDE 10 MEQ in WATER FOR INJECTION 1 100ML.BAG IVPB SCH ×2 (22:27→23:31)
[2022-08-21] MEDS ORDERED: ACETAMINOPHEN IV (For NPO) 1,000 MG in EMPTY BAG 1 BAG IVPB ONE (00:35)
[2022-08-21] MEDS ORDERED: ASPIRIN 300 MG SUPP RECTAL SCH (09:00)
[2022-08-21] MEDS ORDERED: GLYCOPYRROLATE 0.2 MG/ML 2 ML VIAL IVP PRN (11:08)
[2022-08-21] MEDS ORDERED: ONDANSETRON 4 MG/2 ML VIAL IVP PRN (11:08)
[2022-08-21] MEDS ORDERED: LORazepam 1 MG/0.5 ML VIAL IV PRN (11:08)
[2022-08-21] MEDS ORDERED: MORPHINE SULFATE 4 MG/ML SYRINGE IV PRN (11:08)
[2022-08-21] MEDS ORDERED: ACETAMINOPHEN SUPPOSITORY 650 MG SUPP RECTAL PRN (11:08)
[2022-08-21] MEDS ORDERED: ATROPINE OPHTH SOLN 1% 5ML BTL SUBLINGUAL PRN (11:08)
[2022-08-21] MEDS ORDERED: MORPHINE SULFATE 2 MG/ML SYRINGE IV PRN (11:08)
[2022-08-21] MEDS ORDERED: MORPHINE SULFATE (100 MG/2 ML) 100 MG in SODIUM CHLORIDE 0.9% 100 ML IV SCH (11:15)
[2022-08-21] MEDS ORDERED: SCOPOLAMINE 1 MG/72 HR PATCH TRANSDERM SCH (12:00)
--- NOTE | 2022-08-21 12:33 | P.PN ---
Subjective Progress Note Date: 08/21/22 PROGRESS NOTE The patient is a 77-year-old female with a history of ovarian cancer undergoing chemotherapy who presented with leg weakness and speech disturbance, she had minimal troponin elevation. On presentation she had evidence of subacute right posterior temporal lobe infarct. Yesterday there during the day she had worsening of her neurological status, she is unresponsive at this time. She continues to be in sinus mechanism. There is no evidence of malignant arrhythmia. Her echo showed an ejection fraction of 50-55% with mild mitral and moderate tricuspid regurgitation. PHYSICAL EXAMINATION: Blood pressure 131/60 heart rate 80, unresponsive LUNGS: Clear to auscultation anteriorly HEART: Regular rate and rhythm, S1, S2. No S3. No systolic murmur ABDOMEN: Soft, nontender, no organomegaly EXTREMETIES: No edema IMPRESSION: 1. Large cerebrovascular accident with comatose state 2. Ovarian cancer receiving chemotherapy prior to admission 3. Troponin elevation, type II AL PLAN: 1. Prognosis is very poor 2. We will see her on an as-needed basis, please feel free to call us for any question. Objective - Vital Signs Vital signs: Vital Signs Temp 98 F 08/21/22 02:00 Pulse 88 08/21/22 02:00 Resp 18 08/21/22 02:00 BP 131/61 08/21/22 02:00 Pulse Ox 96 08/21/22 08:34 FiO2 Intake & Output 08/20/22 08/21/22 08/21/22 18:59 06:59 18:59 Intake Total 800 401.054 Output Total 800 120 Balance 0 281.054 Weight 59.874 kg Intake: IV 400 400 Sodium Chloride 0.9% 1, 400 400 000 ml @ 100 mls/hr IV . Q10H [facility] Rx#:[id number] Intake, IV Titration 400 1.054 Amount Morphine Sulfate (100 mg/ 1.054 2 ml) 100 mg In Sodium Chloride 0.9% 100 ml @ 1 MG/HR 1.02 mls/hr IV . Q24H [facility] Rx#:[id number] Sodium Chloride 0.9% 1, 400 000 ml @ 100 mls/hr IV . Q10H MEDARDO Rx#:[id number] Oral 0 Output: Urine 800 120 Other: Voiding Method Indwelling Catheter Indwelling Catheter - Labs CBC & Chem 7: 08/20/22 21:05 08/20/22 21:22 Labs: Abnormal Lab Results - Last 24 Hours (Table) 08/20/22 08/20/22 08/20/22 Range/Units 02:24 16:39 20:56 RBC (3.80-5.40) m/uL Hgb (11.4-16.0) gm/dL Hct (34.0-46.0) % RDW (11.5-15.5) % Plt Count (150-450) k/uL Sodium (137-145) mmol/L Glucose (74-99) mg/dL POC Glucose (mg/dL) 144 H 112 H (70-110) mg/dL Calcium (8.4-10.2) mg/dL Procalcitonin 0.10 H (0.02-0.09) ng/mL 08/20/22 08/20/22 Range/Units 21:05 21:22 RBC 3.10 L (3.80-5.40) m/uL Hgb 9.7 L (11.4-16.0) gm/dL Hct 30.8 L (34.0-46.0) % RDW 18.2 H (11.5-15.5) % Plt Count 56 L (150-450) k/uL Sodium 133 L (137-145) mmol/L Glucose 104 H (74-99) mg/dL POC Glucose (mg/dL) (70-110) mg/dL Calcium 6.7 L (8.4-10.2) mg/dL Procalcitonin (0.02-0.09) ng/mL
--- NOTE | 2022-08-21 14:59 | PN ---
PROGRESS NOTE DATE OF SERVICE: 08/21/2022 SUBJECTIVE: This 77-year-old woman, who was admitted with acute stroke. Head MRI showed multiple strokes. The patient is on comfort measures at this time per family's discussion. The patient is sedated with morphine drip at 3 mg/hour. OBJECTIVE: VITAL SIGNS: Pulse is 88, blood pressure 110/60, respirations 18. CHEST: Clear to auscultation. CARDIOVASCULAR: S1, S2. ABDOMEN: Soft. NERVOUS SYSTEM: Basically minimal movements noted. LABORATORY DATA: Reviewed. IMAGING STUDIES: MRI reviewed. ASSESSMENT: 1. Acute stroke involving the left middle cerebral artery territory as well as right parietal lobe. 2. Change in mental status with toxic encephalopathy. 3. Cholecystectomy. 4. No code. No CPR. No vent. 5. Comfort measures. RECOMMENDATIONS: This 77-year-old woman presented with multiple medical issues at this time. The patient is deemed comfort measures per family. The prognosis is extremely guarded, and Neurology has discussed at length with the family and we will continue with comfort measures with morphine drip. See orders for further details. Once again, the prognosis is extremely guarded. Please refer to the previous consultation dictations for more information. Chart reviewed. MMODL / IJN: [id number] /
--- NOTE | 2022-08-21 15:52 | P.CONS ---
History of Present Illness - Reason for Consult Consult date: 08/21/22 ovarian cancer, cytopenia's on chemo Requesting physician: Rosas Snyder - Chief Complaint Unresponsive - History of Present Illness Ms. Carr is a very pleasant 77 yo female who is here for unresponsiveness. Has recent diagnosis of ovarian cancer, following with Dr. Gianni Young. Started on neoadjuvant chemotherapy, C1 given on 08/02/22. Complicated by significant weakness. Chemo schedule changed from carbo/taxol q3w to carbo/taxol weekly. C2 was scheduled for 08/23/22 if pt's toxicity improves however she presented to the hosital due to increased altered mentation and decreased responsiveness. No LOC. Work up with possible CVA. We were consulted due to her being on chemotherapy. It appears that condition worsening while in the hospital and decision was made to pursue comfort care. Onc History: Ms. Carr is a 77 year old woman with no significant PMHx who presents to establish care for ovarian cancer and macrocytic anemia. She presented to [facility] ED on 06/17/22 with abdominal pain, distention, and ascites. She noted having progressive abdominal pain and swelling over the course of the prior month. She denied any fevers, chills, night sweats, or lymphadenoapthy prior to presentation. CT a/p on 06/17/22 with contrast revealed splenomegaly measuring 19.6 cm with hypodense lesions in spleen measuring up to 8.1 cm. She was noted to have bilateral adnexal masses with cystic lesions (largest measuring 5.3 cm on right and 4.3 cm on the left). In addition, a hypodense anterior wall lesion of the uterus measuring 3 cm was noted. Peritoneal carcinomatosis was also noted along with ascitic fluid. She underwent paracentesis on 06/18/22 with 4.2 L of fluid removed. Cytology was positive for malignant cell staining positive for WT1, CA125, CK7, PAX8, and ER suspicious for ovarian vs primary peritoneal primary. CA125 was found to be 785. She was discharged with weekly paracentesis. Of note, CBC on 06/10/22 prior to admission noted pancytopenia with WBC 3.6 (ANC 1.97), Hgb 8.6 (MCV 101.8, RDW 18.6%), platelets 79. Labs on 06/17/22 revealed CBC with WBC 3.7 (ANC 2.7), Hgb 9.5 (MCV 99.8), platelets 70. Outside notes had noted previous anemia with splenomegaly and normal flow cytometry. Bone marrow biopsy was noted to be recommended, but deferred by patient. Her abdomen currently has had recurrent accumulation of fluid. She notes early satiety with anorexia. She denies any fevers, chills, night sweats, lymphadenopathy. She had significant swelling in her lower extremities, which has since decreased close to baseline with lasix. Received C1 of carbo/taxol with neulasta on 08/02/22. Complicated by fatigue and weakness. C2 due on 08/23/22 if pt's overall condition improves, q3w regimen changed to weekly Past Medical History Past Medical History: No Reported History History of Any Multi-Drug Resistant Organisms: None Reported Past Surgical History: Cholecystectomy Additional Past Surgical History / Comment(s): bunionecty to left foot Past Anesthesia/Blood Transfusion Reactions: No Reported Reaction Past Psychological History: No Psychological Hx Reported Smoking Status: Never smoker Past Alcohol Use History: None Reported Past Drug Use History: None Reported Medications and Allergies Home Medications Medication Instructions Recorded Confirmed Type Loperamide HCl [Imodium A-D] 2 - 4 mg PO QID PRN 06/17/22 08/19/22 History traMADol HCL 50 mg PO TID PRN 07/05/22 08/19/22 History Ondansetron [Zofran] 4 mg PO Q6H PRN 08/09/22 08/19/22 History OLANZapine [ZyPREXA] 2.5 mg PO HS 08/19/22 08/19/22 History Allergies Allergy/AdvReac Type Severity Reaction Status Date / Time No Known Allergies Allergy Verified 08/19/22 18:20 Physical Exam Vitals: Vital Signs Temp Pulse Pulse Resp BP BP Pulse Ox 08/21/22 08:34 96 08/21/22 02:00 98 F 88 18 131/61 95 08/21/22 01:00 89 20 124/62 96 08/21/22 00:00 101.5 F H 92 18 126/69 95 08/20/22 23:00 93 23 112/90 97 08/20/22 22:45 96 23 121/70 98 08/20/22 22:30 92 24 119/72 98 08/20/22 22:15 98 18 93/72 98 08/20/22 22:00 92 16 127/59 97 08/20/22 21:45 96 17 111/64 97 08/20/22 21:30 100 20 122/73 96 08/20/22 21:15 98.3 F 98 18 133/83 93 L 08/20/22 20:00 97.8 F 99 16 136/63 96 08/20/22 16:42 92 18 132/71 96 08/20/22 14:25 98.0 F 91 18 95/57 97 Intake and Output 08/20/22 08/21/22 08/21/22 22:59 06:59 14:59 Intake Total 500 300 401.054 Output Total 625 175 120 Balance -125 125 281.054 Intake: IV 100 300 400 Sodium Chloride 0.9% 1, 100 300 400 000 ml @ 100 mls/hr IV . Q10H [facility]ARD[facility] Rx#:[id number] Intake, IV Titration 400 1.054 Amount Morphine Sulfate (100 mg/ 1.054 2 ml) 100 mg In Sodium Chloride 0.9% 100 ml @ 1 MG/HR 1.02 mls/hr IV . Q24H [facility]ARDO Rx#:[id number] Sodium Chloride 0.9% 1, 400 000 ml @ 100 mls/hr IV . Q10H MEDARDO Rx#:[id number] Oral 0 Output: Urine 625 175 120 Other: Voiding Method Indwelling Catheter Indwelling Catheter Indwelling Catheter Gen: AMANDA, comfortable HEENT: Mucosa moist Lungs: Nonlabored respiration Heart: Regular rate Skin: No jaundice Results CBC & Chem 7: 08/20/22 21:05 08/20/22 21:22 Labs: Abnormal Lab Results - Last 24 Hours (Table) 08/20/22 08/20/22 08/20/22 Range/Units 02:24 16:39 20:56 RBC (3.80-5.40) m/uL Hgb (11.4-16.0) gm/dL Hct (34.0-46.0) % RDW (11.5-15.5) % Plt Count (150-450) k/uL Sodium (137-145) mmol/L Glucose (74-99) mg/dL POC Glucose (mg/dL) 144 H 112 H (70-110) mg/dL Calcium (8.4-10.2) mg/dL Procalcitonin 0.10 H (0.02-0.09) ng/mL 08/20/22 08/20/22 Range/Units 21:05 21:22 RBC 3.10 L (3.80-5.40) m/uL Hgb 9.7 L (11.4-16.0) gm/dL Hct 30.8 L (34.0-46.0) % RDW 18.2 H (11.5-15.5) % Plt Count 56 L (150-450) k/uL Sodium 133 L (137-145) mmol/L Glucose 104 H (74-99) mg/dL POC Glucose (mg/dL) (70-110) mg/dL Calcium 6.7 L (8.4-10.2) mg/dL Procalcitonin (0.02-0.09) ng/mL CT Scan - head: report reviewed Assessment and Plan Assessment: 1. Altered mentation due to CVA 2. Ovarian cancer on chemotherapy 3. Pancytopenia due to chemotherapy Plan: Ms. Carr is a 77-year-old female with stage III ovarian cancer on adjuvant chemotherapy with carboplatin and Taxol, status post 1 cycle every 3 week dosing, who is here for decreased responsiveness. Workup with possible stroke. Overall mental status worsening and family opted for comfort care. He has for ovarian cancer she has been on chemo and has been struggling with this. Also pancytopenia due to chemotherapy. No objections to comfort care and hospice care due to overall condition.
[2022-08-21] MEDS: SODIUM CHLORIDE 0.9% 1,000 ML IV SCH (16:25)
[2022-08-21] MEDS ORDERED: SODIUM CHLORIDE 0.9% 500 ML 500 ML IV SCH (17:30)
[2022-08-21 18:14] LABS: African American GFR (CKD) >90 (>60 ml/min/1.73 sqM); Anion Gap 6 mmol/L; Anisocytosis Slight; Basophils % (A) 0 %; Blood Urea Nitrogen 10 mg/dL (7-17); Calcium 6.7 mg/dL (8.4-10.2); Carbon Dioxide 18 mmol/L (22-30); Chloride 108 mmol/L (98-107); Eosinophils % (A) 0 %; Glucose 96 mg/dL (74-99); HGB 9.3 gm/dL (11.4-16.0); Hypochromasia Marked; Lymphocytes # (A) 1.1 k/uL (1.0-4.8); Lymphocytes % (A) 26 %; MCHC 31.1 g/dL (31.0-37.0); Macrocytosis Moderate; Mean Platelet Volume 10.4; Monocytes # (A) 0.2 k/uL (0-1.0); Monocytes % (A) 6 %; Neutrophils % (A) 67 %; Non-African American GFR(CKD) >90 (>60 ml/min/1.73 sqM); Platelet Count 53 k/uL (150-450); Potassium 3.8 mmol/L (3.5-5.1); RBC 2.92 m/uL (3.80-5.40); Sodium 132 mmol/L (137-145); WBC 4.4 k/uL (3.8-10.6)
[2022-08-22 05:15] VITALS: BP 110/50; PULSE 106; RESP 7; TEMP 98.6
--- NOTE | 2022-08-22 11:46 | P.PN ---
Progress Note - Text Progress Note Date: 08/22/22 According to the patient's nurse, the patient's family has decided to making the patient comfort care. She is currently on IV Morphine. Neurology will sign off.
--- NOTE | 2022-08-23 05:04 | PN ---
PROGRESS NOTE DATE OF SERVICE: 08/22/2022 SUBJECTIVE: This 77-year-old woman who was admitted with acute stroke involving the left middle cerebral artery as well as right parietal lobe also had some change in mental status. The patient also complains of abdominal pain which is mostly right-sided. A CAT scan of the abdomen and pelvis done overnight showed large subhepatic complex fluid collections, history of an abscess, appears to be new and Surgical and Infectious Disease evaluation has been sought. The patient is started on broad spectrum IV antibiotics. Cultures are negative so far. PAST MEDICAL HISTORY: Reviewed. REVIEW OF SYSTEMS: A 14-point review is negative as mentioned earlier. MEDICATIONS: Current medications reviewed include Flexeril, Lipitor, doses and rest of medication noted. PHYSICAL EXAMINATION: VITAL SIGNS: Pulse is 99, blood pressure is 140/60, and respirations 16. CHEST: Clear to auscultation. CARDIOVASCULAR: S1 and S2. ABDOMEN: Soft, obese, mild diffuse tenderness in the right side, otherwise no guarding, no rigidity. No mass palpable. LEGS: No edema. NERVOUS SYSTEM: Nonfocal. LABS: Accu-Cheks 302. Other labs are noted. ASSESSMENT: 1. Acute diabetic ketoacidosis. 2. Large subhepatic complex fluid collection, possibly abscess. 3. Increased WBC. 4. Change in mental status, possibly sepsis. 5. Acute urinary tract infection present on admission. 6. History of asthma. 7. History of fibromyalgia. 8. Hypertension. 9. Multiple medical issues. RECOMMENDATIONS: Recommended to continue current medications, continue symptomatic treatment. Otherwise, at this time, I would recommend broad-spectrum, continue with broad-spectrum antibiotics. Follow the cultures. Infectious disease evaluation surgical evaluation. The patient was being started on Zosyn at this time. Prognosis guarded because of multiple complex medical issues. We will monitor the blood sugars closely. I would recommend Lantus at least 80 units subcu b.i.d., the patient seems to have large insulin requirements and blood sugar has been not well-controlled in the outpatient. Further recommendations for diabetic education. Prognosis guarded. MMODL / IJN: [id number] /
--- NOTE | 2022-08-23 07:20 | DS ---
DISCHARGE SUMMARY PRELIMINARY CAUSE OF : Acute stroke involving the left middle cerebral artery as well as the right parietal lobe. OTHER DIAGNOSES: 1. Change in mental status and toxic encephalopathy. 2. Cholecystectomy. 3. Ovarian cancer. 4. No code. No CPR. 5. Comfort measures. HISTORY OF PRESENT ILLNESS/HOSPITAL COURSE: This 77-year-old woman with a past medical history of multiple medical problems, who was admitted with acute stroke. MRI showed findings as above. The patient was monitored in the ICU. The patient was seen in conjunction with multiple consultants. The patient's condition did not improve, and the case discussed at length with the family and the family decided to go with comfort measures, and the patient succumbed to her above-mentioned illness. Prognosis was extremely guarded throughout the hospital stay. Please refer to the multiple consultations including Neurology consultation as well as MRI/MRA, CT angio, and brain CT, report available in the chart. MMODL / IJN: [id number] /
== END 2022-08-22 12:27 | disposition expired | DRG 64 ==
LOC: EC 18:05 → 3SCARD 20:52 → 2SICU 08-20 20:26
PROVIDERS: ADMIT Hospitalist; ATTEND Hospitalist
DX: I63.512 Cerebral infarction due to unspecified occlusion or stenosis of left middle cerebral artery (principal); D61.810 Antineoplastic chemotherapy induced pancytopenia; G92.9 Unspecified toxic encephalopathy; I21.A1 Myocardial infarction type 2; R40.20 Unspecified coma; C56.9 Malignant neoplasm of unspecified ovary; G81.01 Flaccid hemiplegia affecting right dominant side; C78.6 Secondary malignant neoplasm of retroperitoneum and peritoneum; E87.1 Hypo-osmolality and hyponatremia; J90 Pleural effusion, not elsewhere classified; R41.4 Neurologic neglect syndrome; I10 Essential (primary) hypertension; T45.1X5A Adverse effect of antineoplastic and immunosuppressive drugs, initial encounter; J45.909 Unspecified asthma, uncomplicated; Z20.822 Contact with and (suspected) exposure to COVID-19; Z51.5 Encounter for palliative care; Z66 Do not resuscitate; D32.9 Benign neoplasm of meninges, unspecified; D53.9 Nutritional anemia, unspecified; I08.1 Rheumatic disorders of both mitral and tricuspid valves; R29.728 NIHSS score 28; Z91.81 History of falling; Z86.73 Personal history of transient ischemic attack (TIA), and cerebral infarction without residual deficits; Z92.21 Personal history of antineoplastic chemotherapy
CPT/HCPCS: 36415; 70450; 70496; 70498; 70544; 70551; 71046; 80048; 80053; 80061; 83036; 83605; 83721; 84145; 84484; 85025; 85610; 85730; 87040; 87086; 87635; 93005; 93306; 96361; 96365; 96366; 96367; 99285